=== PATIENT | male | born 1965 | race Asian ===

== ENCOUNTER 2018-07-19 05:21 | Inpatient (IN) | payer OTHER ==
[2018-07-19] MEDS ORDERED: KETAMINE 500 MG/10 ML VIAL IV ONE (05:26)
[2018-07-19] MEDS ORDERED: SUCCINYLCHOLINE CHLORIDE 200 MG/10 ML SYR IVP ONE (05:26)
[2018-07-19] MEDS ORDERED: PROPOFOL/EMULSION 1,000 MG/100 ML BOTTLE IV ONE (05:27)
[2018-07-19 05:35] LABS: PLATELET COUNT 156 10^3/uL (150-400)
[2018-07-19] MEDS ORDERED: POTASSIUM Cl (KCl) 10 MEQ/100 ML BAG IV ONE (05:36)
[2018-07-19] MEDS ORDERED: fentaNYL 100 MCG/2 ML INJ IVP ONE ×2 (05:37→09:00)
--- NOTE | 2018-07-19 05:42 | EDPHY ---
H & P Stated Complaint: ALOC Time Seen by Provider: 07/19/18 05:38 HPI/ROS: HPI The patient presents with ALOC with presumed cardiac arrest. The patient went to bed late last night at about 1:00 a.m. Because he was taking care of his baby. He awoke early this morning and got up and went to another bedroom to sleep. He was found by his short of breath and then lost consciousness. She immediately perform CPR. 911 was called. When fire department arrived they placed pads on the patient and he was in a shockable rhythm so he received 1 shock. When paramedics arrived he was in ventricular tachycardia, he received a 2nd shock and then was in a sinus tachycardia after this. He had return of pulses and a normal blood pressure. He received amiodarone. REVIEW OF SYSTEMS 10 systems were reviewed and negative with the exception of the elements mentioned in the history of present illness. PMHx: Healthy, does not take any medications Soc Hx: Lives with his and baby, occasional alcohol, no drugs PHYSICAL General Appearance: Obtunded, does not respond to sternal rub Eyes: Pupils equal and round no pallor or injection ENT, Mouth: Mucous membranes moist Respiratory: He is taking occasional breaths on his own Cardiovascular: Regular rate and rhythm Gastrointestinal: Abdomen is soft and non-tender, no masses, bowel sounds normal Neurological: Unresponsive to painful stimuli, does move extremities Skin: Warm and dry, no rashes Musculoskeletal: Neck is supple non tender Extremities: symmetrical, full range of motion Source: Family, EMS Exam Limitations: Clinical condition Constitutional: Initial Vital Signs Temperature (C) 35.5 C L 07/19/18 05:30 Heart Rate 107 H 07/19/18 05:30 Respiratory Rate 16 07/19/18 05:30 Blood Pressure 160/116 H 07/19/18 05:30 O2 Sat (%) 94 07/19/18 05:30 O2 Delivery Mode Ventilator Allergies/Adverse Reactions: No Known Allergies Allergy (Unverified 07/19/18 05:34) Home Medications: Medication Instructions Recorded NK [No Known Home Meds] 07/19/18 Medical Decision Making - Diagnostics EKG Interpretation: EKG: Complete interpretation has been separately recorded in the [facility] [employer] archive. Summary impression: QRS is wide with right bundle branch block, no ST segment elevation Imaging Results: CT head without contrast is unremarkable. CT chest with contrast demonstrates no pulmonary embolism, bilateral dependent infiltrates, ET tube is at the marylin, discussed with Dr. Cavanaugh of Radiology. Chest x-ray single view demonstrates bilateral pulmonary infiltrates. Imaging: Discussed imaging studies w/ call center recruiter Radiologist, I viewed and interpreted images myself Procedures: INTUBATION Procedure: Rapid sequence intubation. Indication for the procedure was airway protection. The patient was preoxygenated with 100% oxygen by face mask and nasal cannula. The patient was given the following IV medications: Ketamine and succinylcholine, . The patient was orally endotracheally intubated using glide scope with a 8.0 ETT. In line stabilization was performed during the procedure. Tracheal intubation was confirmed with misting on the tube; breath sounds were auscultated equally bilaterally; appropriate color change with [place] CO2 detector. Chest X-ray shows ETT in good position. The procedure was performed by myself. Differential Diagnosis: This is a 53-year-old man who is previously healthy who presents with an episode of shortness of breath and then ALOC with cardiac arrest, initiating CPR immediately. Initially found in a shockable rhythm by fire department and 1 shock delivered. Paramedics found him in ventricular tachycardia and delivered 2nd shock with return of spontaneous circulation. On arrival here, the patient is minimally responsive, does have blood pressure and strong pulses. He is breathing on his own though with decreased respiratory rate. Plan for intubation, IV fluids, EKG. EKG demonstrates no obvious STEMI that he was likely a VFib or V-tach arrest, I have consulted with Dr. Lees from Cardiology. We plan to take the patient to the catheterization lab for HACA and possible catheterization. Patient was intubated in the emergency department, started on propofol. His CT scan of his chest showed no PE. He was hypokalemic with a potassium of 2. His potassium was repleted. He received a 1 L fluid bolus. Critical Care Time: CRITICAL CARE Critical care time spent by me, Dr. Carrasquillo, exclusively with this patient was 30 minutes, exclusive of PA time and exclusive of procedures. The organ system at risk was cardiac and I gave IV fluids, intubated the patient, consulted with Cardiology, emergently transfer the patient to the catheterization lab to prevent worsening of the patients condition. - Data Points Laboratory Results: Laboratory Results 07/19/18 05:20 07/19/18 05:20 07/19/18 07/19/18 07/19/18 05:32 05:29 05:20 WBC RBC Hgb POC Hgb 16.0 gm/dL gm/dL (13.7-17.5) Hct POC Hct 47 % % (40-51) MCV MCH MCHC RDW Plt Count MPV Neut % (Auto) Lymph % (Auto) [place] % (Auto) Eos % (Auto) Baso % (Auto) Nucleat RBC Rel Count Absolute Neuts (auto) Absolute Lymphs (auto) Absolute Monos (auto) Absolute Eos (auto) Absolute Basos (auto) Absolute Nucleated RBC Immature Gran % Immature Gran # RBC/WBC/PLT Morphology Platelet Estimate PT INR D-Dimer POC Sodium 142 mEq/L mEq/L (135-145) Sodium POC Potassium 2.0 mEq/L L* mEq/L (3.3-5.0) Potassium POC Chloride 106 mEq/L mEq/L (97-110) Chloride Carbon Dioxide Anion Gap POC BUN 19 mg/dL mg/dL (7-23) BUN Creatinine POC Creatinine 1.2 mg/dL mg/dL (0.7-1.3) Estimated GFR Glucose POC Glucose 263 mg/dL H mg/dL (70-100) Calcium Magnesium 2.7 mg/dL H mg/dL (1.6-2.3) POC Troponin I 0.01 ng/mL ng/mL (0.00-0.08) Ethyl Alcohol 07/19/18 07/19/18 07/19/18 05:20 05:20 05:20 WBC 13.37 10^3/uL H 10^3/uL (3.80-9.50) RBC 5.22 10^6/uL 10^6/uL (4.40-6.38) Hgb 15.4 g/dL g/dL (13.7-17.5) POC Hgb Hct 46.5 % % (40.0-51.0) POC Hct MCV 89.1 fL fL (81.5-99.8) MCH 29.5 pg pg (27.9-34.1) MCHC 33.1 g/dL g/dL (32.4-36.7) RDW 12.6 % % (11.5-15.2) Plt Count 156 10^3/uL 10^3/uL (150-400) MPV 10.2 fL fL (8.7-11.7) Neut % (Auto) 27.3 % L % (39.3-74.2) Lymph % (Auto) 68.0 % H % (15.0-45.0) [place] % (Auto) 3.1 % L % (4.5-13.0) Eos % (Auto) 0.5 % L % (0.6-7.6) Baso % (Auto) 0.3 % % (0.3-1.7) Nucleat RBC Rel Count 0.1 % % (0.0-0.2) Absolute Neuts (auto) 3.65 10^3/uL 10^3/uL (1.70-6.50) Absolute Lymphs (auto) 9.09 10^3/uL H 10^3/uL (1.00-3.00) Absolute Monos (auto) 0.41 10^3/uL 10^3/uL (0.30-0.80) Absolute Eos (auto) 0.07 10^3/uL 10^3/uL (0.03-0.40) Absolute Basos (auto) 0.04 10^3/uL 10^3/uL (0.02-0.10) Absolute Nucleated RBC 0.01 10^3/uL 10^3/uL (0-0.01) Immature Gran % 0.8 % % (0.0-1.1) Immature Gran # 0.11 10^3/uL H 10^3/uL (0.00-0.10) RBC/WBC/PLT Morphology TNP Platelet Estimate ADEQUATE (ADEQ) PT 13.7 SEC SEC (12.0-15.0) INR 1.03 (0.83-1.16) D-Dimer 5.17 ug/mLFEU H ug/mLFEU (0.00-0.50) POC Sodium Sodium 141 mEq/L mEq/L (135-145) POC Potassium Potassium 2.3 mEq/L L* mEq/L (3.3-5.0) POC Chloride Chloride 107 mEq/L mEq/L (97-110) Carbon Dioxide 14 mEq/l L mEq/l (22-31) Anion Gap 20 mEq/L H mEq/L (8-16) POC BUN BUN 18 mg/dL mg/dL (7-23) Creatinine 1.2 mg/dL mg/dL (0.7-1.3) POC Creatinine Estimated GFR > 60 Glucose 255 mg/dL H mg/dL (70-100) POC Glucose Calcium 8.4 mg/dL L mg/dL (8.5-10.4) Magnesium POC Troponin I Ethyl Alcohol < 10 mg/dL mg/dL (0-10) Medications Given: Fentanyl/Sodium Chloride (Fentanyl 10 Mcg/Ml (Premix)) 100 mls @ 0 mls/hr IV CONT TARAH; As Directed PRN Reason: Protocol Stop: 07/29/18 05:59 Last Admin: 07/19/18 06:00 Dose: 100 mls Propofol (Diprivan 10 Mg/Ml (Premix)) 100 mls @ 0 mls/hr IV CONT TARAH; Titrate PRN Reason: Protocol Stop: 01/15/19 05:59 Last Admin: 07/19/18 05:35 Dose: 100 mls Discontinued Medications Fentanyl (Sublimaze) 100 mcg IVP EDNOW ONE Stop: 07/19/18 05:38 Last Admin: 07/19/18 06:27 Dose: 100 mcg Potassium Chloride (Potassium Cl 10 Meq (Premix)) 100 mls @ 100 mls/hr IV EDNOW ONE Stop: 07/19/18 06:59 Last Admin: 07/19/18 06:27 Dose: 100 mls Ketamine HCl (Ketamine) 100 mg IV EDNOW ONE Stop: 07/19/18 05:27 Last Admin: 07/19/18 05:30 Dose: 100 mg Succinylcholine Chloride (Quelicin) 100 mg IVP EDNOW ONE Stop: 07/19/18 05:27 Last Admin: 07/19/18 05:30 Dose: 100 mg Point of Care Test Results: Chemistry 07/19/18 07/19/18 05:32 05:29 POC Sodium 142 mEq/L mEq/L (135-145) POC Potassium 2.0 mEq/L L* mEq/L (3.3-5.0) POC Chloride 106 mEq/L mEq/L (97-110) POC BUN 19 mg/dL mg/dL (7-23) POC Creatinine 1.2 mg/dL mg/dL (0.7-1.3) POC Glucose 263 mg/dL H mg/dL (70-100) POC Troponin I 0.01 ng/mL ng/mL (0.00-0.08) ISTAT H&H 07/19/18 05:32 POC Hgb 16.0 gm/dL gm/dL (13.7-17.5) POC Hct 47 % % (40-51) Departure - Departure Disposition: [facility] Inpatient Acute Clinical Impression: Cardiac arrest, Hypokalemia Condition: Critical
[2018-07-19 05:46] LABS: INR 1.03 (0.83-1.16); PROTIME(PATIENT) 13.7 SEC (12.0-15.0)
[2018-07-19] MEDS ORDERED: IOPAMIDOL (ISOVUE 370) 100 ML BTL IV ONE (05:59)
[2018-07-19] MEDS ORDERED: POTASSIUM Cl (KCl) 100 ML IV ONE (06:00)
[2018-07-19] MEDS ORDERED: fentaNYL/NACL 100 ML IV SCH (06:00)
[2018-07-19] MEDS ORDERED: PROPOFOL/EMULSION 100 ML IV SCH ×2 (06:00→06:30)
[2018-07-19] MEDS ORDERED: LIDOCAINE 1% 300 MG/30 ML SDV ONE (06:22)
[2018-07-19] MEDS ORDERED: IOPAMIDOL (ISOVUE-370) 150 ML BTL IV ONE (06:23)
[2018-07-19] MEDS ORDERED: fentaNYL 100 MCG/2 ML INJ ONE (06:23)
[2018-07-19] MEDS ORDERED: MIDAZOLAM 2 MG/2 ML VIAL ONE (06:23)
[2018-07-19] MEDS ORDERED: NITROGLYCERIN 1,500 MCG/15 ML VIAL MISC ONE (06:27)
[2018-07-19] MEDS ORDERED: EPINEPHrine 1 MG/10 ML SYR IVP ONE (06:27)
[2018-07-19] MEDS ORDERED: BIVALIRUDIN 250 MG/5 ML VIAL IV ONE (06:27)
[2018-07-19] MEDS ORDERED: ATROPINE SULFATE 1 MG/10 ML SYR ONE (06:27)
[2018-07-19] MEDS ORDERED: VECURONIUM BROMIDE 10 MG VIAL ONE (06:59)
--- NOTE | 2018-07-19 07:34 | CPEKG ---
Test Reason : OPEN Blood Pressure : / mmHG Vent. Rate : 096 BPM Atrial Rate : 096 BPM P-R Int : 185 ms QRS Dur : 171 ms QT Int : 441 ms P-R-T Axes : 071 074 -03 degrees QTc Int : 558 ms Sinus rhythm Probable left atrial enlargement Right bundle branch block Confirmed by Margaret Carrasquillo ([id number]) on 07/19/2018 7:34:00 AM Referred By: Confirmed By:Margaret Carrasquillo
[2018-07-19] MEDS ORDERED: PROTOCOL MAGNESIUM 1 DOSE IV PRN (07:51)
[2018-07-19] MEDS ORDERED: PROTOCOL POTASSIUM 1 DOSE MISC PRN (07:51)
[2018-07-19] MEDS ORDERED: POTASSIUM Cl (KCl) 20 MEQ/50 ML BAG IV ONE ×2 (08:21→13:00)
[2018-07-19] MEDS ORDERED: KETAMINE 200 MG/20 ML VIAL ONE (08:34)
[2018-07-19] MEDS: NS 1,000 ML IV SCH (08:48)
[2018-07-19] MEDS: POTASSIUM Cl (KCl) 50 ML IV SCH ×6 (08:48→17:39)
[2018-07-19] MEDS ORDERED: MIDAZOLAM 2 MG/2 ML VIAL IVP PRN (09:00)
[2018-07-19] MEDS ORDERED: NOREPINEPHRINE 4MG/NS 500 ML IV PRN (09:00)
[2018-07-19] MEDS ORDERED: niCARdipine/NACL 200 ML IV PRN (09:00)
[2018-07-19] MEDS ORDERED: MIDAZOLAM HCL 50 MG in D5W 50 ML IV PRN (09:00)
[2018-07-19] MEDS ORDERED: NS 1,000 ML IV ONE ×2 (09:00→21:30)
[2018-07-19] MEDS ORDERED: ENOXAPARIN 30 MG/0.3 ML SYR SC SCH (09:00)
[2018-07-19] MEDS ORDERED: VECURONIUM BROMIDE 50 MG in D5W 50 ML IV SCH (09:00)
[2018-07-19] MEDS ORDERED: RN MUST ADD K & MAG PROT TO WORKLIST MISC ONE (09:00)
[2018-07-19] MEDS ORDERED: NS 250 ML IV PRN (09:00)
[2018-07-19] MEDS ORDERED: NS 1,000 ML IV SCH (09:00)
--- NOTE | 2018-07-19 09:03 | PDPROPOC ---
Sedation Plan of Care Sedation Plan of Care: mental status noted, patient can tolerate sedation ASA Classification: ASA 5 Planned drugs: fentanyl, midazolam Mallampati Score: Unable to assesss Mallampati Reference Image: Patient passed 3-3-2 rule?: Yes
--- NOTE | 2018-07-19 09:04 | PDHPUP ---
History & Physical Update H&P update statement: This history and physical update is based on an assessment of the patient which was completed after admission or registration (within 24 hours), but prior to the surgery/procedure. H&P update: H&P reviewed & patient examined, changes noted (pt. with OOH sudden cardiac with shockable rhythm, CT negative for PE)
--- NOTE | 2018-07-19 09:10 | PDDXCAT ---
Diagnostic Cath Note - . Date: 07/19/18 Caustic Mixer: Nabeel Indication: Resuscitated from sudden cardiac - Procedure Access: right groin Procedure: left heart catheterization, coronary angiography, left ventriculogram , other (Placement of Zoll cooling catheter...) - Findings-Left Heart Catheterization LM: A large vessel that bifurcates into an LAD and circumflex system. No evidence of plaque, dissection or thrombus. LAD: LAD arises in its usual location and gives rise to a large and early diagonal vessel. The LAD and diagonal system is free of flow limiting disease, plaque or thrombus. LCX: The circumflex is 3.5 mm in size and gives rise to a normal obtuse marginal system. No plaque, thrombus or dissection. RCA: 3.5 mm in size and a dominant vessel giving rise to a normal PDA. There is no flow limiting disease, dissection or thrombus. EDP: 15mmHg LVEF: 35% Wall motion: globally decreased LV function with global hypokinesis. The ventricle appears to be normal in size. Complications: NONE Estimated blood loss: <50ml Closure method: other (ARTERIAL LINE LEFT IN PLACE TO TRANSDUCE THE PRESSURE) Assessment: Normal left ventricular chamber size with reduced LV systolic function. Most likely secondary to myocardial stunning from cardiac arrest and resuscitation. There is a normal right dominant coronary system, without evidence of coronary artery disease, dissection thrombus or aneurysm. Plan: Initiate therapeutic hypothermia protocol (Formerly HACA) for indication of return of circulation post and continue cooling with targeted temperature management to maintain temperature below 36 degrees Celsius for the next 24 hours. Initiate rewarming in 24 hours with appropriate neurology consultation tomorrow for possible repeat imaging and EEG to help give prognosis as to neurological outcome. Electrolyte protocol to avoid hypokalemia. Echocardiogram to evaluate for valvular heart disease although mitral regurgitation and aortic stenosis have already been ruled out. The patient may benefit from Cardiac MR to evaluate for ARVD if he has a favorable neurological response to targeted temperature management. He will likely require AICD implantation prior to discharge if his neurological outcome is favorable. Patient Problems: Problems Problem Status Onset Cardiac arrest Acute Hypokalemia Acute
[2018-07-19 09:16] LABS: INR 0.94 (0.83-1.16); PROTIME(PATIENT) 12.8 SEC (12.0-15.0)
[2018-07-19 09:55] LABS: CREATINE KINASE 417 IU/L (0-224)
--- NOTE | 2018-07-19 10:35 | GHP ---
DATE OF ADMISSION: 07/19/2018 Angela Donald is a 53-year-old man, without significant past medical history. He presents to the [facility] via EMS after an apparent cardiac arrest, which occurred at home. The arrest itself was unwitnesse d, but may have been caught relatively quickly after his initial arrest event. The history is mainly obtained from his , who was at home with him at the time of his arrest. The patient had a relatively uneventful day yesterday, slept in fairly late for him on Friday. The family and their 3-year-old and 9-month-old children had a fairly uneventful day. The older child connie Miller went to play and swim in the pool. He did not seem to be unwell or have a fever, nausea, vomit ing, or chills, or any other issues. He did not complain of chest pain or shortness of breath yester day. He was up from 1:00 a.m. until about 4, taking care of the 9-month-old child, and around 3:50 i n the morning he brought the infant to his , who then nursed the child. After that was completed she put the baby down, and then heard some abnormal noises from the other bedroom. She went and fou nd her unresponsive in the bed, describes sounds that were most likely agonal respirations. He was unresponsive and ultimately stopped breathing. She pulled him from the bed onto the floor and began immediate CPR, as well as giving him breaths because his lips were blue, and he was unresponsi ve. She aggressively pushed on his chest, and gave him breaths, and then noted that his lips turned back to a blood color. He also had some spontaneous efforts to breathe at that time. EMS arrived an d an AED were applied, which recommended shock. The patient received a shock x1, and continued to br eathe on his own, then had an apparent pulse. When the paramedics arrived the patient was noted to b e in an unstable ventricular tachycardia, for which he received another shock, as well as amiodarone, and subsequently returned to sinus rhythm, with a perfusing rhythm. The patient was taken to the em ergency department urgently, and an EKG was obtained, demonstrating sinus tachycardia with right bund le branch block, a QTc, which was prolonged and measured at 558 milliseconds. QT uncorrected was 441 milliseconds. The patient did have an early R-wave transition and a dominant R prime wave of his QR S, with a fairly deep S-wave in I, aVL, V4, V5 and V6. I was asked to see the patient urgently in co nsultation by the emergency department physician. Because of the lack of ST-segment changes on the EKG, I recommended that the patient have a CT of his pulmonary circulation to rule out pulmonary embolus. His D-dimer had also come back at that point a nd was noted to be elevated at 5.17. This was repeated and found to be 7.3. His point of care tropo nino was 0.01 and negative. REVIEW OF SYSTEMS: A 10-point review of systems was reviewed with the , and was unremarkable. T he patient does have a history of a childhood illness when he was 11, which was associated with diffi culty in moving 1 side of his face, as well as for the fact that he may have lost his ability to spea k for some time. The notes that a couple of times over the past 3 years she has been awakened f rom sleep with her having abnormal breathing and making abnormal noises, very similar to the ones that he made this evening, and he has also been noted to be unresponsive during those episodes, but he has always spontaneously been able to be aroused by shaking him, and usually complains that he was having a bad dream at the time that these events occur. The patient's does not know him to be diabetic or to have hypertension. He does not have dyslipidemia. There is no family history mike t she is aware of presently of sudden cardiac , but that will be checked today when she speaks t o his family in [place]. The 10-point review of systems is negative except as otherwise listed in the H PI. PAST MEDICAL HISTORY: He may have been diagnosed with a fatty liver at some point in the recent past . SOCIAL HISTORY: Pertinent for the fact that he does not smoke. Does not abuse alcohol or illicit dr gilliam. He does have an occasional glass of wine. 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 He is and has 2 young children, ages 3 years, and 9 months, and has been involved in [employer] care of the youngest child with some decrease in his usual sleep pattern. MEDICATIONS: None. ALLERGIES: He is not known to be allergic to medications. PHYSICAL EXAMINATION: GENERAL: At the time my arrival to the hospital, the patient was intubated an d was not overbreathing the ventilator. VITAL SIGNS: The patient's blood pressure was 96/76, with a heart rate of 76, in sinus rhythm on the monitor. Oxygen saturation was 97%, with an FiO2 of 100. The temperature, temperature was 36 Celsius. His pupils were pinpoint and nonreactive. The patient w as unresponsive to sternal rub. Did not have posturing or other evidence of acute neurological rojas es. There were no obvious mild fasciculations or tremor. NECK: Revealed no bruit, and there was no evidence of JVD. HEART: Revealed a normal S1 and S2, without S3, S4. I did not appreciate a murmu r, rub, or gallop sound. LUNGS: Clear to auscultation anteriorly, with decreased breath sounds at th e posterior bases bilaterally. ABDOMEN : Scaphoid, with positive bowel sounds. It is nondistended a nd nontender. There is no apparent hepatosplenomegaly or masses in the abdomen. PULSES: The femora l, dorsalis pedis and posterior tibial pulses were 2+, symmetrical and equal bilaterally. EXTREMITIE S: Cool and dry, without evidence of diaphoresis. LABORATORY STUDIES: Revealed a sodium of 142, potassium of 2.3, which was repeated and found to be 2 .0 point of care chloride was 106. BUN is 19, creatinine 1.2, glucose 263. Ionized calcium was 1.08 , with a magnesium of 2.7. Post intubation blood gas revealed a pH of 7.21, pCO2 of 49, PO2 of 132, CO2 of 20 with a base excess of -9. CBC revealed a white count of 13.37, with a predominance of lymp hocytes at 68.0. There was also an absolute lymphocytosis at 9.09, 10 to 3rd per microliter. The H a nd H were 15.4 and 46.5, with a platelet count of 156. Toxicology screen in the urine was negative, with an ethyl alcohol of less than 10. There was no evidence of drugs of abuse in his system. PT/IN R was initially 13.7 and 1.03, with a D-dimer of 5.17, repeated and found to be 7.3. The EKG again r eveals sinus tachycardia with right bundle branch block and deep S waves in V1, V2 and the lateral pr ecordial leads, with a prominent V2. There is no evidence of pre-excitation on the EKG. The NV inte rval was noted to be 185. There was also no evidence of the Brugada variant. The QT corrected is 55 8. There was also no evidence of an epsilon wave in V1 and V2, so no EKG evidence of after potential s that would be suggestive of arrhythmogenic right ventricular dysplasia. There were no acute EKG ch anges suggestive of myocardial injury or ST-segment elevation. The patient's CT scan of the chest was negative for pulmonary embolus. The CT of the head was also n egative for an acute injury or bleed. There was no midline shift or evidence of a stroke, per the ra diologist's report. I did review the chest CT and head CT images, as well as the chest x-ray. This does reveal some degree of consolidation in the gravity-dependent regions of the right and left lungs , especially in the lower lobes. This may be consistent with post arrest or aspiration. IMPRESSION/PLAN: The patient has experienced sudden cardiac , which was out of the hospital, an d the initial event was not witnessed. The patient did receive immediate bystander CPR from his , with return of circulation and breathing effort prior to the arrival of the paramedics. His condit ion deteriorated again, and he received a countershock for an AED recommended shock. The rhythm was, therefore, most likely ventricular fibrillation or ventricular tachycardia. At the time of the arri sabrina of the paramedics, the patient did have what was described as ventricular tachycardia. I have no t seen those rhythm strips to confirm this, given the fact that the patient has an underlying wide ri ght bundle branch block. This could of course have been a different rhythm. In any case, the patien t responded normally with what appears to be sinus tachycardia and right bundle branch block with the second shock and amiodarone. The patient has remained unresponsive and underwent an intubation unde r the care of for airway protection, and is ruled out for pulmonary embolus, in spite o f an elevated D-dimer level, on the basis of a CT pulmonary angiogram. Our plan is to take the patie nt to the cardiac catheterization laboratory, since he is unconscious, and has had a return of sponta neous circulation post [id number] arrest with documented ventricular tachycardia. He will be ta claire to the [facility] laboratory for placement of Zoll therapeutic temperature management catheter in the venous system, and because his CT is negative for pulmonary embolus, we will perform cardiac catheterization with coronary angiography and left ventriculography to determine the patient's coronary anatomy, and to rule out a threatened myocardial infarction as the cause for the patient's myocardial rhythm dist urbance. The patient is critically ill and his prognosis, in spite of these efforts, is of course guarded. He will be admitted to the ICU for targeted temperature management, to obtain a temperature of between 33 and 36 degrees Celsius for the next 24 hours. We will use appropriate sedation, along with adjun ctive paralytic therapy if necessary, and management of his blood pressure, if that becomes elevated, with Cardene intravenously. The patient will have an echocardiogram later today to rule out valvula r heart disease or other congenital abnormality such as ventricular septal defect. Neurology consult ation will be obtained tomorrow to help ascertain the patient's prognosis once rewarming has begun. Copy requested to: Primary care physician /[id number]/MODL
[2018-07-19] MEDS: PROPOFOL/EMULSION 100 ML IV SCH ×2 (10:40→16:43)
[2018-07-19] MEDS: ERTAPENEM 1 GM in NS 100 ML IV SCH (11:19)
[2018-07-19] MEDS: ALBUTEROL 60 PUFFS/8 GM MDI IH SCH ×3 (11:32→20:23)
--- NOTE | 2018-07-19 12:21 | ECHO ---
[email or web address] [address] [address] Main: [phone] Fax: Transthoracic Echocardiogram Name: LINDA VALADEZ MR#: [id number] Study Date: 07/19/2018 Study Time: 10:58 AM Date of : 1965 Age: 53 year(s) Height: 162.6 cm (64 in.) Weight: 65 kg (143.3 lb.) BSA: 1.7 m2 Gender: Male Examination: Echo Indication: HACA, V-Fib/Tach Image Quality: Contrast: Requested by: José Lees BP: 141 mmHg/83 mmHg Heart Rate: Rhythm: Normal sinus rhythm Indication: HACA, V-Fib/Tach Procedure Staff Principal Architect: Ar Iverson RDCS Reading Physician: Tremayne Lloyd MD Requesting Provider: Conclusions: Normal size left ventricle. No LV hypertrophy. Normal global systolic LV function. EF is 79 %. No regional wall motion abnormality. Normal diastolic LV function. Normal RV function. The left atrium is normal in size. The right atrium is normal in size. The aorta is normal. No pericardial effusion. Measurements: Chambers Valvular Assessment AV/MV Valvular Assessment TV/PV Normal Normal Normal Name Value Range Name Value Range Name Value Range Ao Maria C (MM): 3.2 cm (2.2 cm-3.7 AV Vmax: 1.19 m/s (1 m/s-1.7 PV Vmax: 1.26 m/s (0.6 m/s-0.9 cm) m/s) m/s) IVSd (2D): 0.8 cm (0.6 cm-1.1 AV maxP mmHg ( - ) PV PGmax: 6 mmHg ( - ) cm) LVOT Vmax: 0.87 m/s (0.7 m/s-1.1 LVDd (2D): 4.1 cm (4.2 cm-5.9 m/s) cm) MV E Vmax: 0.68 m/s ( - ) LVDs (2D): 2.2 cm (2.1 cm-4 MV A Vmax: 0.58 m/s ( - ) cm) MV E/A: 1.17 ( - ) LVPWd (2D): 1.0 cm (0.6 cm-1 cm) LVEF (2D): 79 (>=54 %) Continued Measurements: Valvular Assessment AV/MV Patient: LINDA VALADEZ Study Date: 07/19/2018 Page 1 of 2 10:58 AM Name Value MV E' Septal: 0.05 m/s MV E/E' Septal: 12.90 MV E/E' Lateral: 14.80 Findings: Left Ventricle: Normal size left ventricle. No LV hypertrophy. Normal global systolic LV function. EF is 79 %. No regional wall motion abnormality. Normal diastolic LV function. Right Ventricle: Normal size right ventricle. Normal RV function. Left Atrium: The left atrium is normal in size. Normal appearing atrial septum. Right Atrium: The right atrium is normal in size. Mitral Valve: The mitral valve is normal in appearance and function. Aortic Valve: The aortic valve is normal in appearance and function. Tricuspid Valve: The tricuspid valve is normal in appearance and function. Pulmonic Valve: The pulmonic valve is normal in appearance and function. Aorta: The aorta is normal. Pericardium: No pericardial effusion. (No Signature Object) Patient: LINDA VALADEZ Study Date: 07/19/2018 Page 2 of 2 10:58 AM [id number]
[2018-07-19 12:40] LABS: INR 0.94 (0.83-1.16); PROTIME(PATIENT) 12.8 SEC (12.0-15.0)
--- NOTE | 2018-07-19 13:51 | GCON ---
PULMONARY CRITICAL CARE CONSULTATION DATE OF CONSULTATION: 07/19/2018 REASON FOR CONSULTATION: Intensive care unit evaluation and management of out of hospital cardiopulm onary arrest. The patient is on the HACA protocol. HISTORY: The patient is a 53-year-old with no known medical problems. He was at home early this [facility], helping his to take care of their small child. He was tending to the child and sleeping i n a different room. The awaken at approximately 3:30 and heard her abnormally breathing . She went to wake him up, but could not, noted that his lips were somewhat blue. He was breathing, but respiratory efforts were poor. She pulled him from the bed that he was on onto the floor and be filemon CPR. This was both cardiac and respiratory. She noted better color to his lips. She called 911 . The paramedics arrived rapidly. He was found to be in atrial fibrillation by report and was cardi overted. He was shocked again for ventricular tachycardia and was given amiodarone with return of sp ontaneous circulation and a sinus rhythm. He was transported to the emergency department. It is unc lear to me if he was intubated in the field or in the emergency department. In any case, he was take n emergently to the lab tester. Cardiac catheterization was clean. He received a CT angiogram of the chest, which was negative for pulmonary embolic disease. Some areas of bibasilar consolidation were noted. He did apparently vomit and possibly aspirated. CT scan of the head was negative. He was ad mitted to the intensive care unit. The HACA protocol was initiated at approximately 8 a.m. PAST MEDICAL HISTORY: Negative. He has no known medical problems. No history of heart disease or h eart problems. In high school, he had what sounds like a Bain's palsy. This resolved. There is no history of sleep apnea. His describes as occasional snoring without apneas and occasional night roblero. DRUG ALLERGIES: No known drug allergies. SOCIAL HISTORY: The patient is with a 9-month-old and 3-1/2-year-old at home. 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 He was born in [place]. Tobacco and alcohol are negative. FAMILY HISTORY: Negative/unobtainable from the patient. REVIEW OF SYSTEMS: A 10-point review of systems is negative according to the patient's . PHYSICAL EXAMINATION: GENERAL: Reveals a gentleman who is paralyzed and sedated, endotracheal tube and NG tube are in place, along with a Zoll cooling catheter. An arterial line is also in place and a single lumen IJ catheter is present in the left neck and a triple-lumen catheter is present in the right groin. A Thomas catheter is in place. HEENT: Remarkable for the endotracheal tube and NG tube to suction. Pupils appear small, approximately 3 mm and equal. Reactivity was not assessed. CHEST : Clear anteriorly. There are no rhonchi. Breath sounds are diminished at the bases. HEART: Regu lar in rate and rhythm. VITAL SIGNS: Blood pressure is currently 105/62 with a heart rate of approx imately 60, current temperature is 33. He is on 40% FiO2 with saturations of 100. End-tidal CO2 is 28 currently. ABDOMEN: Soft. Tenderness cannot be assessed. Few bowel sounds are present. GENITO URINARY: A Thomas catheter is in place with a relatively large amount of clear urine. EXTREMITIES: Unremarkable for edema or cords. The extremities are warm with good perfusion. NEUROLOGIC: Examina tion cannot be assessed. DATA BASE: Radiologic studies are as outlined above. Current arterial blood gas shows a pH of 7.40, pCO2 of 26, and a PO2 of 79 on 40% FiO2, a rate of 20, and tidal volume of 580. Saturations are 97%. CO2 is 17 with a base excess of -8. Lactic acid is 3.9. White blood cell count is 17,600, hematocrit 47. Platelets are normal. PT and PTT were normal on admission with a D-dimer as high as 7.3. Sodium is 140. Initial potassium was 2.0. This came u p to 4 following initial repletion and is now 2.8. CO2 17, BUN 18 with a creatinine 0.9, glucose is 258. Ionized calcium 1.07. Magnesium and phosphate are normal. Bilirubin is normal, AST 160. LDH 1262. Total CPK 417. CK-MB is negative. Troponin is 0.87. Albumin is 4.5. Tox screen and blood a lcohol on admission were all negative. ASSESSMENT: 1. Out of hospital cardiac arrest. We do not know the etiology of the initial event. Respiratory a rrest leading to cardiac arrest seems somewhat unlikely, but cannot be totally excluded. A primary a rrhythmogenic arrest is certainly possible. He did have shockable rhythm when initially found and wh en subsequently interrogated had ventricular tachycardia, which was then shocked to a normal sinus rh ythm with return of spontaneous circulation. Prognosis would appear possibly to be favorable due to the resuscitative efforts by his and apparent return of good color to his lips at that time prio r to arrival of the first responders and the paramedics. Neurologic status will not be able to be re assessed until approximately 12 hours after rewarming or approximately 8 p.m. tomorrow night. 2. Probable aspiration pneumonia. The patient did vomit and was felt to have aspirated. CT scan of the chest showed some consolidative changes consistent with this. There was no evidence of pulmonar y embolic disease. 3. Global hypokinesis. This was found on catheterization. Please see the catheterization procedure report by Dr. Lees. Decreased left ventricular function was noted globally; however, the ventricl e was normal in size. Ejection fraction was estimated to be 35% at that time. This was felt to be s econdary to myocardial stunning. There was no evidence of coronary artery disease. 4. Hypokalemia. On replacement protocols. 5. Acute respiratory failure. The patient is on the ventilator, sedated and paralyzed per the HACA protocol. The patient was breathing spontaneously and holding his saturations on arrival to the [facility] and was intubated at that time. PLAN AND RECOMMENDATIONS: Patient will be kept on the HACA protocol. This will end at approximately 8 a.m. tomorrow and rewarming will be started at that time. Paralysis and sedation will be maintain ed. Appropriate ventilatory support will be maintained. Blood gases will be followed. Chest x-ray will be followed. CBC, electrolytes, PT and PTT, etc. will all be followed as per the HACA protocol. A sputum culture will be obtained. Ertapenem will be given for probable aspiration pneumonia. Alb uterol will be given per ventilatory protocols. Further plans and recommendations will be made based on his progress over the next 12 to 24 hours. All of the above was discussed with the patient's and a close friend. Care was discussed with R espiratory, Nursing, and the ICU multidisciplinary team. Over 1 hour of critical care time was spent directly with the patient. /[id number]/MODL
[2018-07-19] MEDS ORDERED: D5W 1,000 ML IV SCH (14:22)
[2018-07-19] MEDS ORDERED: INSULIN REGULAR HUMAN 100 UNIT in NS 100 ML IV SCH (14:22)
[2018-07-19] MEDS ORDERED: D50W 25 GM/50 ML SYR IVP PRN (14:22)
--- NOTE | 2018-07-19 14:34 | ASMTCMCOM ---
CM Note CM Note Notes: Pt arrived via EMS to the Emergency Department following apparent cardiac arrest at home. Reviewed chart. Pt does not appear to have any significant history - possible Bain's palsy as a child (resolved) and a possible fatty liver. Pt is currently intubated and under therapeutic hypothermia protocol. He is and has two small children (ages 3 and 9 months). 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 Discharge needs remain unclear; pt's prognosis is guarded at this time. CM will continue to follow. Discharge Plan: To be determined Date Signed: 07/19/2018 02:30 PM Electronically Signed By:Susanne Enriquez RN
[2018-07-19] MEDS: VECURONIUM BROMIDE 50 MG in D5W 50 ML IV SCH (15:33)
--- NOTE | 2018-07-19 16:58 | PDMN ---
Medical Necessity Medical necessity: [facility] resp failure : out of hospital cardiac arrest - pt intubated, hypothermia protocol - placement of Zoll cooling catheter- condition guarded
[2018-07-19] MEDS: fentaNYL/NACL 100 ML IV SCH (18:24)
[2018-07-19] MEDS: FAMOTIDINE 20 MG/NACL 50 ML IV SCH (20:16)
[2018-07-19] MEDS ORDERED: ALBUMIN 5% 500 ML BOTTLE IV ONE (20:59)
[2018-07-19] MEDS ORDERED: ALBUMIN 5% 500 ML IV ONE (21:30)
[2018-07-20] MEDS: ALBUTEROL 60 PUFFS/8 GM MDI IH SCH ×7 (00:36→23:28)
[2018-07-20] MEDS: NS 1,000 ML IV SCH (00:50)
[2018-07-20] MEDS: PROPOFOL/EMULSION 100 ML IV SCH ×3 (00:50→19:52)
[2018-07-20 01:05] LABS: INR 1.06 (0.83-1.16)
[2018-07-20] MEDS: POTASSIUM Cl (KCl) 50 ML IV SCH ×2 (03:16→03:56)
[2018-07-20] MEDS: VECURONIUM BROMIDE 50 MG in D5W 50 ML IV SCH ×2 (05:31→23:36)
[2018-07-20] MEDS: fentaNYL/NACL 100 ML IV SCH ×2 (07:02→21:16)
[2018-07-20] MEDS ORDERED: PROTOCOL CALCIUM 1 DOSE IV PRN (07:58)
--- NOTE | 2018-07-20 08:22 | PDINTPN ---
Broadcast Field Supervisor Progress Note Assessment/Plan: Assessment/plan: * Status post cardiac arrest * HACA protocol-rewarming as started -continue per protocol -assess neurologic status once warm * Acute respiratory failure secondary to above-stable on mechanical ventilation -will hold weaning for now * Sedation-stable on current paralysis * Shock * Hypokalemia * Possible aspiration pneumonia -continue on ertapenem * Cardiomyopathy-improved * VTE prophylaxis * Stress ulcer prophylaxis * Nutrition-on hold Subjective: Sedated on mechanical ventilation Objective: Vital Signs Temp Pulse Resp BP Pulse Ox 33 C L 43 L 16 113/65 100 07/20/18 07:00 07/20/18 07:00 07/20/18 07:00 07/20/18 07:00 07/20/18 07:00 Laboratory Results 07/20/18 00:10 07/20/18 05:40 07/19/18 07/20/18 07/21/18 05:59 05:59 05:59 Intake Total 4506.1 Output Total 5505 Balance -998.9 PT 14.0 SEC (12.0-15.0) 07/20/18 00:10 INR 1.06 (0.83-1.16) 07/20/18 00:10 - Time Spent With Patient Time Spent With Patient: 35 min of critical care time spent with patient. Case discussed with Nursing and Respiratory therapy Physical Exam - Physical Exam General Appearance: other (Sedated), No alert EENT: PERRL/EOMI, ET tube Neck: non-tender Respiratory: rhonchi (Few basilar), No wheezing Cardiac/Chest: normal peripheral pulses, regular rate, rhythm Abdomen: normal bowel sounds, non-tender, soft Male Genitalia: deferred Rectal: deferred Skin: normal color, warm/dry Extremities: non-tender Neuro/Psych: No alert ICD10 Worksheet Patient Problems: Problems Problem Status Onset Cardiac arrest Acute Hypokalemia Acute
[2018-07-20] MEDS: FAMOTIDINE 20 MG/NACL 50 ML IV SCH ×2 (08:27→21:08)
[2018-07-20] MEDS: ERTAPENEM 1 GM in NS 100 ML IV SCH (08:49)
[2018-07-20] MEDS ORDERED: RN MUST REMOVE K+ & MG+ PROTOCOL FRM WORKLIST MISC SCH (09:00)
[2018-07-20] MEDS ORDERED: RN MUST ADD CA+ & PHOS PROTOCOL TO WORKLIST MISC SCH (09:00)
[2018-07-20] MEDS: D5W 1/2 NS 1,000 ML IV SCH ×2 (09:06→16:04)
[2018-07-20] MEDS ORDERED: D50W 25 GM/50 ML SYR IVP ONE (09:15)
[2018-07-20] MEDS ORDERED: PROTOCOL K PHOSPHATE 1 DOSE IV PRN (10:33)
[2018-07-20 12:27] LABS: INR 1.02 (0.83-1.16); PROTIME(PATIENT) 13.6 SEC (12.0-15.0)
--- NOTE | 2018-07-20 15:40 | PDCARPN ---
Cardiology Progress Note Assessment/Plan: Assessment/Plan: 53-year-old male with no known past medical or cardiac history. He is admitted to the ICU status post cardiac arrest at home. I have reviewed his chart in detail and also discussed the case at length with Dr. Lees. Early yesterday morning the patient's heard the patient breathing at again only and went in and found him unresponsive. She performed CPR and color came back to his lips. EMS arrived quickly and he will had 1 shock from the AICD. He was also given amiodarone and did require 2nd shock, presumably for ventricular tachycardia or ventricular fibrillation. He had return of spontaneous respiration. In the ER he had a CT of the chest negative for pulmonary embolism. He was [facility] and had no significant flow-limiting coronary disease. He has been placed on HACA protocol. Echocardiogram shows normalization of ejection fraction and possible RV abnormalities. He was also significantly hypokalemic with his 1st set of labs yesterday morning. 1. Ybq-yp-uwbbetrh cardiac arrest. This is most consistent with a primary cardiac arrhythmia, although respiratory event with aspiration is also possible. His initial EKG showed right bundle branch block. His EKG under the HACA protocol shows narrowing of QRS prolongation of the QT, I do not think we can label him as having long QT in the setting of hypothermia. 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 His apparently has witnessed episode similar to this in past but he has always had return of consciousness. He is rewarming today and will have neurological assessment after that. Would favor cardiac MRI to evaluate further mention and right ventricular dysplasia and then secondary prevention IC D. I have discussed this briefly with Dr. Hansen. 2. Hypokalemia: He is on the replacement protocol. Unclear why he would be hypokalemic as there is no report of diuretic use or vomiting or diarrhea. We need to make sure he has not been taking some sort of supplements that could be acting as diuretic. Will ask [facility] for their opinion about this. Certainly hypokalemia could have triggered cardiac arrhythmia. Greater than 45 min was spent in chart review, data review, discussion with Dr. Lees and Dr. Hansen as well as direct patient care. 07/20/18 15:33 Subjective: Intubated and sedated Reviewed/Discussed With: multidisciplinary team Objective: Vital Signs (8 Hrs) Temp Pulse Resp BP Pulse Ox 07/20/18 15:00 34.4 C L 49 L 16 117/66 100 07/20/18 14:00 34.3 C L 50 L 16 118/66 100 07/20/18 13:00 34 C L 47 L 16 121/65 H 100 07/20/18 12:15 52 L 16 100 07/20/18 12:00 33.8 C L 46 L 16 110/67 100 07/20/18 11:00 33.6 C L 47 L 16 112/67 100 07/20/18 10:00 33.4 C L 45 L 16 111/66 100 07/20/18 09:00 33.3 C L 48 L 16 105/60 100 07/20/18 08:10 44 L 16 100 07/20/18 08:00 33 C L 47 L 16 111/64 100 Intake/Output (24 Hrs) 07/19/18 07/20/18 07/21/18 05:59 05:59 05:59 Intake Total 4506.1 Output Total 5505 465 Balance -998.9 -465 Intake: Oral (ml) 0 IV Intake (ml) 205 IV Infused (ml) 4301.1 Albumin 5% 500 ml @ Wide 500 Open IV BOLUS ONE Rx#: [id number] D5w 1,000 ml @ 25 mls/hr 33.6 IV CONT TARAH Rx#: [id number] Insulin Regular Human 100 2.6 unit In Ns 100 ml @ As Directed IV AD TARAH Rx#: [id number] Ns 1,000 ml @ 50 mls/hr 1105 IV CONT TARAH Rx#: [id number] Ns 1,000 ml @ Wide Open 1000 IV ONCE ONE Rx#: [id number] Propofol/Emulsion 100 ml 354 @ Titrate IV CONT TARAH Rx# :[id number] Vecuronium [place] 50 mg 69.5 In D5w 50 ml @ Per Protocol IV CONT TARAH Rx#: [id number] fentaNYL/NACL 100 ml @ As 177.7 Directed IV CONT TARAH Rx# :[id number] niCARdipine/NACL 200 ml @ 58.7 Per Protocol IV CONT PRN Rx#:[id number] Output: Urine (ml) 4755 465 Catheter 4155 465 OG Tube Output (ml) 750 Large Bore (>12 Hebrew) 750 Non-weighted Oral Stomach Other: Weight 66.9 kg Number of Stools Catheter 0 Intubated and sedated Regular rate and rhythm without murmur above gallop Lungs clear without wheezes rhonchi or rales Abdomen soft No lower extremity edema 2+ dorsalis pedis pulses bilaterally Chest x-ray reviewed: Bilateral alveolar opacities. Result Diagrams: 07/20/18 11:55 07/20/18 11:55 Cardiac Labs: Cardiac Lab Results (72 Hrs) 07/19/18 08:50 CK-MB (CK-2) Fraction 5.15 H Troponin I 0.876 H EKG: Reviewed by me: 1st EKG so sinus rhythm with right bundle branch block. 2nd EKG shows sinus bradycardia, more narrow QRS, mildly prolonged QT interval. No evidence of pre-excitation or Brugada pattern. Telemetry: Sinus rhythm and sinus bradycardia. Intermittent bundle branch block. Echocardiogram: Reviewed by me: Normal LV size and systolic function without regional wall motion abnormality. The RV is borderline dilated with possible apical hypokinesis. No significant valvular disease. Catheterization films reviewed by me: Slightly slow filling in all cardiac vessels without flow-limiting lesion. Ejection fraction on ventriculogram is approximately 35%. ICD10 Worksheet Patient Problems: Problems Problem Status Onset Cardiac arrest Acute Hypokalemia Acute
--- NOTE | 2018-07-20 18:39 | SOAPPROG ---
SOAP Progress Note Assessment/Plan: Assessment: Nephrology consult please see dictation # [id number] I discussed my recs with Dr. Casillas, ICU team, and family pager [phone] 07/20/18 19:32 Objective: Vital Signs Temp Pulse Resp BP Pulse Ox 35.0 C L 52 L 16 111/64 100 07/20/18 18:00 07/20/18 18:00 07/20/18 18:00 07/20/18 18:00 07/20/18 18:00 Microbiology 07/20/18 00:45 - Final Sputum, Induced/Suctioned Laboratory Results 07/20/18 11:55 07/19/18 07/20/18 07/21/18 05:59 05:59 05:59 Intake Total 4506.1 1095.2 Output Total 5505 595 Balance -998.9 500.2 PT 13.6 SEC (12.0-15.0) 07/20/18 11:55 INR 1.02 (0.83-1.16) 07/20/18 11:55 ICD10 Worksheet Patient Problems: Problems Problem Status Onset Cardiac arrest Acute Hypokalemia Acute
--- NOTE | 2018-07-20 20:29 | GCON ---
DATE OF CONSULTATION: 07/20/2018 REFERRING PHYSICIAN: Brenda Casillas MD REASON FOR CONSULTATION: Hypokalemia. HISTORY OF PRESENT ILLNESS: The patient is a 53-year-old man with no significant past medical history, who was brought in by paramedics yesterday after an apparent cardiac arrest at home. The patient is unable to give any history as he is currently intubated and sedated, so most of this is obtained from discussing with his family, reviewing the chart, and discussing with Dr. Casillas. His was present at the time of the arrest. She notes that he had an episode of grunting noises that she heard from the other room when he was putting the baby down to bed. She went in and found him unresponsive, and sounded like he had an agonal breath. At that point, he stopped breathing and she began immediate CPR while awaiting paramedics. When paramedics arrived, a shock was recommended and, therefore, was presumably a ventricular tachycardiac arrhythmia. He at that point received amiodarone, and returned to sinus rhythm. His EKG on arrival to the emergency room demonstrated sinus tachycardia with a right bundle branch block and a prolonged QTc. He had a CT of his chest that was negative for pulmonary embolus. He was also taken to the wheelabrator operator emergently, and did not have any flow-limiting obstructive disease. He has since been put on a hypothermic protocol. His echocardiogram shows a normal EF with possible abnormal right ventricle. Dr. Casillas has asked me to see the patient given his profound hypokalemia on admission. On his labs, initial potassium was 2.3, repeat demonstrated 2.0. He has received several doses of potassium chloride intravenously, and his most recent level is up to 4.3 at 1800 this afternoon. His creatinine on arrival was 1.2 but it has improved to 0.7 by most recent labs. Of note, his blood sugar was 255, and his bicarbonate was 14 on these initial labs. The patient's denies any history of any diabetes. She was able to pull up [facility] records, for which his primary care is Dr. Dorothea Skinner. He had a hemoglobin A1c in April of this year that was normal at 5.4. Unfortunately, there were no chemistry values in the [facility] that she was able to pull up. As far she is aware, he has never been told he has had a low potassium. His magnesium on these initial labs was 2.7 and his calcium was 8.4. He is not taking any bake-wxy-dmzeamg medications or prescription medications. He is not taking herbal medications. She notes that his diet has been fairly regular with a variety of solute intake. She notes that he has been trying to lose a little bit of weight recently but has not been overly-restricting his diet. She denies any use of diuretics or laxatives. She denies any recent nausea, vomiting, or diarrhea. 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 He plays basketball and has not had the patient stop doing this as a result of cramping or fatigue. However, his does note that he has had a few episodes over the past 2 years where he makes these abnormal grunting noises, and with patting him on the back he snaps out of it. He has never lost consciousness or had to go to the emergency room as a result. There is no family history if any electrolyte disorders or kidney failure. REVIEW OF SYSTEMS: Obtained from his and reviewing the chart. GENERAL: He has not had any fevers or decreased oral intake. He was generally feeling well up until this event. HEENT: No sore throat. PULMONARY: No shortness of breath. CARDIAC: No chest pain. No lower extremity edema. GI: No nausea, vomiting, or diarrhea. He does have chronic constipation but no worse, and was not using any laxatives. : He has not had any dysuria or hematuria or polyuria. ENDOCRINE: No history of diabetes. He had an A1c of 5.4 in Fifi of this year. No polydipsia. SKIN: No rash. NEUROLOGIC: No recent weakness or loss of consciousness until this episode. MUSCULOSKELETAL: No muscle cramps. PAST MEDICAL HISTORY: No significant past medical history. He did have an A1c of 5.4 in Fifi of this year but no other labs are available. FAMILY HISTORY: His mother has Parkinson's. There are no kidney disorders or electrolyte abnormalities. SOCIAL HISTORY: He is . He drinks occasional alcohol. Exercises by playing basketball. He has 2 small children. 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 OUTPATIENT MEDICATIONS: No prescription or ivyp-nrk-onguwsm medications. PHYSICAL EXAM: VITAL SIGNS: Temperature is 35.2, on a cooling protocol. Blood pressure 132/75, pulse 58, satting 100% on 40% FiO2. GENERAL: Intubated and sedated on cooling-blanket protocol. HEENT: Pupils are reactive. Mucous membranes are moist. NECK: Supple. CARDIAC: Regular rate and rhythm. Bradycardic. No murmurs or rubs. LUNGS: Clear to auscultation bilaterally. ABDOMEN: Soft. Normal bowel sounds. : Thomas is in place, with yellow urine. EXTREMITIES: Cool to touch. No edema. Good muscle tone. NEUROLOGIC: Sedated and on paralytics. INITIAL LABS: On presentation showed a sodium 141, potassium 2.3, chloride 107 , bicarbonate 14, BUN 18, creatinine 1.2, glucose 255, calcium 8.4, magnesium 2.7, troponin 0.01. His most recent labs show a sodium 142, potassium 4.3, chloride 113, bicarbonate 23, BUN 13, creatinine 0.6, glucose 95, calcium 8.2, phosphorus 3.5, magnesium 2.1. His LDH initially was 1262. His AST was 160. Total bilirubin 0.7, albumin 4.5, phosphorus 3.5. His initial blood gas at 12 o 'clock yesterday was pH 7.4, pCO2 of 26, PO2 of 79, bicarbonate 16. White blood cell count most recently was 8.2, hemoglobin 14.0, hematocrit 40.5, platelets 103. Urine toxicology screen was negative. Alcohol level was negative. IMAGING: His CTA of the chest was negative for pulmonary embolus. He did have lower lung consolidation bilaterally, worse on the right side. Head CT was negative. DISCUSSION AND DECISION-MAKING: The patient is a 53-year-old man with no significant past medical history, who now presents with an outside cardiac arrest, with severe hypokalemia on presentation. 1. Hypokalemia. His potassium was quite low on presentation. Given the negative workup so far for the etiology of his cardiac arrest, including the negative cardiac cath and CT angiogram of his chest, I agree that this could possibly be the explanation. Discussing with his , there is no history of any recent diuretic or laxative use. He is not on any medications, both over- the-counter or prescription. Presumably, if this is renal wasting of potassium , I would have expected this to be noted sooner than at age 53. However, reviewing his [place] records, there are no chemistries that have been checked at least in several years.. His glucose was elevated on presentation and his bicarb was low, suggesting the possibility of a diabetic ketoacidosis. Unfortunately, no ketones or urinalysis was checked. I will check a hemoglobin A1c. This also raises the possibility of a renal tubular acidosis, and we will send urine electrolytes to better evaluate. What would be most helpful would be to do a 24-hour urine potassium collection to determine if he has had any renal wasting. However, this study is difficult to interpret in the setting of severe hypokalemia given the need to replace potassium urgently. A random urine potassium will be helpful. If it does show significant abnormal values, then I think it is worthwhile starting the 24 hour collection. We will also check the rest of the electrolytes. His magnesium was normal on presentation. I agree with continued close monitoring of his potassium as you are- we will have to observe his potassium for a few days to see if it begins to drop again to help determine if he truly was this hypokalemic on presentation or if this was medication effect. He is having this checked every few hours, especially while he is on the hypothermic protocol. Once we have the results of these tests, we will be better able to understand the cause and make further recommendations. I have discussed this with both his family and Cardiology in detail. 2. Cardiac arrest. Again, this may be potassium related. He had a normal cardiac cath, as well as a CT angiogram; no family history. Dr. Casillas does mention that his right ventricle does appear abnormal, and there is a potential chance for an arrhythmia focus. Obviously, we need to exclude potassium as the cause given the severity. Thank you very much for the consultation. We will continue to follow closely with you. Please do not hesitate to call with any questions. /[id number]/MODL MTDD
[2018-07-21] MEDS: PROPOFOL/EMULSION 100 ML IV SCH ×2 (00:41→07:31)
[2018-07-21 01:10] LABS: INR 1.03 (0.83-1.16); PROTIME(PATIENT) 13.7 SEC (12.0-15.0)
[2018-07-21] MEDS ORDERED: POTASSIUM Cl (KCl) 50 ML IV ONE (01:28)
[2018-07-21] MEDS: ALBUTEROL 60 PUFFS/8 GM MDI IH SCH ×3 (03:17→10:55)
[2018-07-21] MEDS ORDERED: MAGNESIUM SULF 1 GM/DEXTROSE 100 ML IV ONE (04:59)
[2018-07-21] MEDS: AMPICILLIN/SULBACTAM 3 GM in NS 100 ML IV SCH ×4 (05:01→23:39)
[2018-07-21] MEDS: D5W 1/2 NS 1,000 ML IV SCH (05:28)
[2018-07-21] MEDS: fentaNYL/NACL 100 ML IV SCH (07:31)
--- NOTE | 2018-07-21 08:31 | PDINTPN ---
Sport Psychologist Progress Note Assessment/Plan: Assessment/plan: * Status post cardiac arrest * HACA protocol-now warm * Mental status-awake and alert and following commands * Acute respiratory failure secondary to above-stable on mechanical ventilation -will assess for extubation including CPAP trial and weaning parameters * Probable severe obstructive sleep apnea -will arrange for an outpatient sleep study soon as possible * Sedation-off * Shock-resolved * Hypokalemia * Possible aspiration pneumonia -continue on Unasyn * Cardiomyopathy-improved * VTE prophylaxis * Stress ulcer prophylaxis * Nutrition-on hold Overall markedly improved Subjective: Awake and alert on mechanical ventilation. Following simple commands. Objective: Vital Signs Temp Pulse Resp BP Pulse Ox 36.8 C 108 H 14 135/77 H 100 07/21/18 08:00 07/21/18 08:00 07/21/18 08:00 07/21/18 08:00 07/21/18 08:00 Microbiology 07/20/18 00:45 - Final Sputum, Induced/Suctioned Laboratory Results 07/21/18 00:10 07/21/18 04:25 07/20/18 07/21/18 07/22/18 05:59 05:59 05:59 Intake Total 4506.1 2243.7 Output Total 5505 1320 Balance -998.9 923.7 PT 13.7 SEC (12.0-15.0) 07/21/18 00:10 INR 1.03 (0.83-1.16) 07/21/18 00:10 Laboratory Results 07/21/18 00:10 07/21/18 04:25 07/21/18 07/21/18 04:25 04:25 Patient Temperature 36.6 DEGREES DEGREES pCO2 45 mmHg H mmHg (34 - 38) pO2 92 mmHg H mmHg (65 - 75) Total CO2 24 mEq/L mEq/L (23 - 27) ABG pH 7.32 L (7.35 - 7.45) ABG PO2/FiO2 Ratio 230 RATIO RATIO ABG HCO3 23 mEq/L mEq/L (22 - 26) ABG O2 Saturation 97 % H % (92 - 95) ABG Base Excess -3.2 mEq/L L mEq/L (-2.5 - 2.5) ABG Lactic Acid 1.3 mmol/L mmol/L (0.5 - 1.6) O2 Concentration % 40 % % Actual Respiration Rate 20 Set Respiration Rate 18 SIMV YES Tidal Volume 500 PEEP 5 Pressure Support 7 Calcium 8.2 mg/dL L mg/dL (8.5 - 10.4) Ionized Calcium 1.22 MMOL/L MMOL/L (1.12 - 1.30) Phosphorus 3.4 mg/dL mg/dL (2.5 - 4.5) Magnesium 1.8 mg/dL mg/dL (1.6 - 2.3) - Time Spent With Patient Time Spent With Patient: 35 min of critical care time spent with patient, Case discussed with Respiratory therapy Nursing and neurology Physical Exam - Physical Exam General Appearance: alert EENT: PERRL/EOMI, ET tube Neck: non-tender Respiratory: crackles (Few basilar), No respiratory distress, No wheezing Cardiac/Chest: normal peripheral pulses, regular rate, rhythm Peripheral Pulses: 2+: carotid (R), carotid (L), femoral (R), femoral (L), dorsalis-pedis (R), dorsalis-pedis (L) Abdomen: normal bowel sounds, non-tender, soft Male Genitalia: deferred Rectal: deferred Skin: normal color, warm/dry Extremities: normal range of motion, non-tender, normal inspection, normal capillary refill Neuro/Psych: alert ICD10 Worksheet Patient Problems: Problems Problem Status Onset Cardiac arrest Acute Hypokalemia Acute
[2018-07-21] MEDS ORDERED: ENOXAPARIN 60 MG/0.6 ML SYR SC SCH (09:00)
--- NOTE | 2018-07-21 09:16 | GCON ---
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 However, he had an episode 2 nights ago in wh ich she heard him making a sound that she has always heard before and typically he simply responds wh en she shakes him, and wakes up. In this case, he did not respond and she said that he had his eyes partially open, and she thought his teeth were somewhat clenched. She says he was blue in his lips, and she pulled into the floor and initiated CPR. Rescue squad came and assessed him, and he received a shock for ventricular tachycardia. He got amiodarone and went to sinus rhythm. He went through a cute workup in the emergency department and had some EKG changes but good EF documented on his echoca rdiogram. He had a head CT that was unremarkable, and CT angiogram of the chest was negative for pul monary embolus. PAST MEDICAL HISTORY: Generally unremarkable except for that noted above. The patient had the HACA protocol initiated. He has been rewarmed and reached normothermia at around 0100, 7 hours ago. The nurse says he has been following commands and seems to be understanding instructions and commands thr ough his , but the patient understands Polish. No alcohol or smoking. He has never had any epi sodes of problems with breathing or nightmares any other times except during the evenings, that his w brianda has witnessed. No known history of seizure or chest pain or palpitations, and no history of sync ope. He is normally very physically active. No episodes of partial paralysis or severe muscle cramp s. FAMILY HISTORY: Noncontributory, as far as we know, but cannot get direct information from patient y et. No drug allergy. REVIEW OF SYSTEMS: Unobtainable currently. MEDICATIONS: At home, he was not on any regular prescription drugs. Here, he has received protocol with sedation and paralytics for the HACA protocol and other supportive medications but that have all been discontinued in terms of the paralytics and only p.r.n. sedative. PHYSICAL EXAMINATION: VITAL SIGNS: The blood pressure is 135/77, pulse 108, respiration 14 on the v entilator. He is having some spontaneous respiration now and being put on CPAP. Temperature 36.8. GENERAL: He is well developed, in no acute distress. NECK: Supple, with no bruits or masses. CARD IAC: Regular rate and rhythm. No murmur. NEUROLOGIC: He is lethargic, but arouses, and opens his eyes to command, and follows commands to close his eyes and squeeze my fingers, and some more specifi c commands he comes close, but does not always get it exactly right in his hands, such as being asked to stick up his thumb. Another time he was able to stick up 2 fingers on command on the right. The facial movements seem to be symmetric. The pupils are 2 mm and reactive. Extraocular movements see m to be intact. The motor exam reveals spontaneous movements in all the extremities in a purposeful fashion, and I do not detect any weakness on manual muscle testing. He seems to recognize sensation in all the extremities, and reflexes are brisk but symmetric. As noted, the head CT did not show any acute abnormalities. Initial catheterization showed a left ve ntricular ejection fraction of 35%, globally decreased LV function with global hypokinesis, but no oc clusions of coronary vessels. IMPRESSION: Total unit time of 70 minutes. The patient is status post HACA from ventricular tachyca rdia and arrest. There is unproven but clinically suspected sleep apnea history, which may have been a precipitating event here. I do not think he has a primary seizure disorder very likely, and it do es not appear that he has primary coronary disease. At this point, his neurologic examination does n ot show any evidence of overt injury, but we can do further assessments once he is extubated and dete rmine if his language and cognitive skills are fully maintained or not. I spoke to his and expl ained the prognosis is very good for neurologic recovery at this stage, and it looks as if he will pr obably be extubated this morning. /[id number]/MODL
--- NOTE | 2018-07-21 09:48 | SOAPPROG ---
SOAP Progress Note Assessment/Plan: Assessment: Pt examined. His MS appears good, and he is being extubated!! 1. Hypokalemia K now normal, renal function normal, and other electrolytes look ok. At present, I query whether his initial hypokalemia was primarily a result of intracellular shift during resuscitation. It has now normalized, which is likely due to shifting or reshifting (rewarming). In the absence of other systemic findings, isolated hypokalemia seems unlikely. I will check a TSH (thyrotoxic hypokalemic periodic paralysis). At this point, will monitor in a serial fashion, and evaluate further pending future K levels. 2. Sleep apnea Pt's family give a clinical picture severe sleep apnea. This could be primary cause of arrest, if due to reasons other than hypokalemia. 07/21/18 09:49 Subjective: Just extubated Objective: Vital Signs Temp Pulse Resp BP Pulse Ox 36.8 C 108 H 14 135/77 H 100 07/21/18 08:00 07/21/18 08:00 07/21/18 08:00 07/21/18 08:00 07/21/18 08:00 Microbiology 07/20/18 00:45 - Final Sputum, Induced/Suctioned Laboratory Results 07/21/18 00:10 07/21/18 04:25 07/20/18 07/21/18 07/22/18 05:59 05:59 05:59 Intake Total 4506.1 2243.7 Output Total 5505 1320 Balance -998.9 923.7 PT 13.7 SEC (12.0-15.0) 07/21/18 00:10 INR 1.03 (0.83-1.16) 07/21/18 00:10 Physical Exam - Physical Exam General Appearance: mild distress Respiratory: lungs clear Cardiac/Chest: regular rate, rhythm Abdomen: soft Male Genitalia: other (aguilar) Extremities: normal inspection ICD10 Worksheet Patient Problems: Problems Problem Status Onset Cardiac arrest Acute Hypokalemia Acute
[2018-07-21] MEDS: FAMOTIDINE 20 MG/NACL 50 ML IV SCH ×2 (09:54→21:16)
--- NOTE | 2018-07-21 09:57 | PDCARPN ---
Cardiology Progress Note Assessment/Plan: Assessment/Plan: 53-year-old male with no known past medical or cardiac history. He is admitted to the ICU on 07/19 status post cardiac arrest at home. The patient's heard agonal breathing type noises and started CPR. EMS arrived quickly and he had 1 shock from the AED. He was also given amiodarone and did require 2nd shock, presumably for ventricular tachycardia or ventricular fibrillation. He had return of spontaneous respiration. In the ER he had a CT of the chest negative for pulmonary embolism. He was then taken to the label tacker and had no significant flow-limiting coronary disease. He has completed the HACA protocol and is now rewarmed. Echocardiogram shows normalization of ejection fraction and possible RV abnormalities. He was also significantly hypokalemic with his 1st set of labs. 1. Pln-ar-eukcyruu cardiac arrest. This is most consistent with a primary cardiac arrhythmia, although respiratory event with aspiration is also possible. SHEBA leading to VT/VF is possible. I am concerned primary hypokalemia played a role. His initial EKG showed right bundle branch block. His EKG under the HACA protocol shows narrowing of QRS prolongation of the QT, I do not think we can label him as having long QT in the setting of hypothermia. 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 His apparently has witnessed episode similar to this in past but he has always had return of consciousness. At this point, neurological prognosis is favorable, but will await extubation, planned for this morning. Would favor cardiac MRI to evaluate for right ventricular dysplasia and then secondary prevention ICD. 2. Hypokalemia: He is on the replacement protocol. Unclear why he would be hypokalemic as there is no report of diuretic use or vomiting or diarrhea. Appreciate renal consult. Ongoing lab evaluation (SPEP, will need more urine electrolytes) 3. Neuro status: await extubation. He is following commands. Appreciate Dr. Good' consult 07/21/18 09:51 Subjective: Intubated but nods in response to questions Reviewed/Discussed With: other Objective: Vital Signs (8 Hrs) Temp Pulse Resp BP Pulse Ox 07/21/18 08:00 36.8 C 108 H 14 135/77 H 100 07/21/18 07:00 36.8 C 107 H 17 129/74 H 98 07/21/18 06:00 36.8 C 90 19 131/70 H 98 07/21/18 05:00 36.6 C 90 19 128/70 H 99 07/21/18 04:00 36.6 C 84 18 110/60 100 07/21/18 03:15 55 L 18 100 07/21/18 03:00 36.7 C 84 18 136/74 H 100 07/21/18 02:31 36.6 C 77 19 142/75 H 100 07/21/18 02:00 36.5 C 68 18 137/76 H 100 Intake/Output (24 Hrs) 07/20/18 07/21/18 07/22/18 05:59 05:59 05:59 Intake Total 4506.1 2243.7 Output Total 5505 1320 Balance -998.9 923.7 Intake: Oral (ml) 0 IV Intake (ml) 205 208 IV Infused (ml) 4301.1 2035.7 Albumin 5% 500 ml @ Wide 500 Open IV BOLUS ONE Rx#: [id number] D5w 1,000 ml @ 25 mls/hr 33.6 IV CONT TARAH Rx#: [id number] D5w 1/2 Ns 1,000 ml @ 75 905 mls/hr IV CONT TARAH Rx#: [id number] Insulin Regular Human 100 2.6 0 unit In Ns 100 ml @ As Directed IV AD TARAH Rx#: [id number] Ns 1,000 ml @ 50 mls/hr 1105 513 IV CONT TARAH Rx#: [id number] Ns 1,000 ml @ Wide Open 1000 IV ONCE ONE Rx#: [id number] Propofol/Emulsion 100 ml 361 @ Per Protocol IV CONT TARAH Rx#:[id number] Propofol/Emulsion 100 ml 354 @ Titrate IV CONT TARAH Rx# :[id number] Vecuronium Dalton 50 mg 69.5 61.7 In D5w 50 ml @ Per Protocol IV CONT TARAH Rx#: [id number] fentaNYL/NACL 100 ml @ As 177.7 Directed IV CONT TARAH Rx# :[id number] fentaNYL/NACL 100 ml @ 195 Per Protocol IV CONT TARAH Rx#:[id number] niCARdipine/NACL 200 ml @ 58.7 Per Protocol IV CONT PRN Rx#:[id number] Output: Urine (ml) 4755 1320 Catheter 4155 1320 OG Tube Output (ml) 750 0 Large Bore (>12 [place]) 750 0 Non-weighted Oral Stomach Other: Weight 66.9 kg Output Comment Catheter 2 hours Number of Stools Catheter 0 Intubated but following commands Regular rate and rhythm without murmur or gallop Lungs occasional rhonchi anterior and laterally No lower extremity edema Result Diagrams: 07/21/18 00:10 07/21/18 04:25 Cardiac Labs: Cardiac Lab Results (72 Hrs) 07/19/18 08:50 CK-MB (CK-2) Fraction 5.15 H Troponin I 0.876 H Telemetry: Sinus rhythm and sinus tachycardia ICD10 Worksheet Patient Problems: Problems Problem Status Onset Cardiac arrest Acute Hypokalemia Acute
[2018-07-21] MEDS ORDERED: D5W 1/2 NS 1,000 ML IV SCH (10:00)
[2018-07-21] MEDS ORDERED: ONDANSETRON 4 MG/2 ML VIAL ONE (15:16)
[2018-07-21] MEDS: ONDANSETRON 4 MG/2 ML VIAL IVP PRN (15:48)
[2018-07-21] MEDS: ACETAMINOPHEN 325 MG TAB PO PRN ×2 (16:31→21:16)
--- NOTE | 2018-07-21 17:14 | CPEKG ---
Test Reason : OPEN Blood Pressure : / mmHG Vent. Rate : 045 BPM Atrial Rate : 045 BPM P-R Int : 214 ms QRS Dur : 149 ms QT Int : 637 ms P-R-T Axes : 052 063 044 degrees QTc Int : 552 ms Sinus bradycardia Borderline prolonged NH interval Right bundle branch block Prolonged QT Confirmed by Bola Hansen ([id number]) on 07/21/2018 5:13:36 PM Referred By: Confirmed By:Bola Hansen
[2018-07-22] MEDS: AMPICILLIN/SULBACTAM 3 GM in NS 100 ML IV SCH ×3 (06:51→20:27)
[2018-07-22 08:21] LABS: PLATELET COUNT 100 10^3/uL (150-400)
--- NOTE | 2018-07-22 08:33 | SOAPPROG ---
SOAP Progress Note Assessment/Plan: Assessment: hypokalemia, resolved cardiac arrest, witnessed, immediate CPR, survived ALFRED resolved Plan: continue therapies and further cardiac evaluation renal issues seem to have resolved. Renal signing off, available if needed 07/22/18 08:29 Objective: Vital Signs Temp Pulse Resp BP Pulse Ox 37.6 C 83 20 110/81 H 95 07/22/18 07:42 07/22/18 07:42 07/22/18 07:42 07/22/18 07:42 07/22/18 07:42 Microbiology 07/20/18 00:45 - Final Sputum, Induced/Suctioned Laboratory Results 07/22/18 07:55 07/22/18 04:30 07/21/18 07/22/18 07/23/18 05:59 05:59 05:59 Intake Total 2243.7 2328 Output Total 1320 2155 Balance 923.7 173 PT 13.7 SEC (12.0-15.0) 07/21/18 00:10 INR 1.03 (0.83-1.16) 07/21/18 00:10 ICD10 Worksheet Patient Problems: Problems Problem Status Onset Cardiac arrest Acute Hypokalemia Acute
--- NOTE | 2018-07-22 09:19 | PDINTPN ---
[facility] Progress Note Assessment/Plan: Assessment/plan: * Status post cardiac arrest * HACA protocol-resolved * Mental status-awake and alert and following commands * Acute respiratory failure secondary to above-stable off mechanical ventilation * Probable severe obstructive sleep apnea -did well on CPAP last night * Shock-resolved * Hypokalemia-resolved * Possible aspiration pneumonia -continue on Unasyn * Cardiomyopathy-improved * VTE prophylaxis * Stress ulcer prophylaxis * Nutrition-on hold * Disposition-may be stable for transfer to [place]. Will discuss with Cardiology Overall markedly improved Subjective: Resting comfortably in bed. No current complaints. Objective: Vital Signs Temp Pulse Resp BP Pulse Ox 37.5 C 91 20 133/87 H 96 07/22/18 09:00 07/22/18 09:00 07/22/18 09:00 07/22/18 09:00 07/22/18 09:00 Microbiology 07/20/18 00:45 - Final Sputum, Induced/Suctioned Laboratory Results 07/22/18 07:55 07/22/18 04:30 07/21/18 07/22/18 07/23/18 05:59 05:59 05:59 Intake Total 2243.7 2328 Output Total 1320 2155 Balance 923.7 173 PT 13.7 SEC (12.0-15.0) 07/21/18 00:10 INR 1.03 (0.83-1.16) 07/21/18 00:10 - Time Spent With Patient Time Spent With Patient: 35 min of time spent with patient, over 1/2 involved with coordination of care or counseling. Case discussed with Neurology, Nephrology, Nursing and Respiratory therapy Physical Exam - Physical Exam General Appearance: WD/WN EENT: PERRL/EOMI, normal ENT inspection, pharynx normal, TMs normal Neck: non-tender, full range of motion, supple, normal inspection Respiratory: chest non-tender, crackles (Few) Cardiac/Chest: normal peripheral pulses, regular rate, rhythm, systolic murmur Peripheral Pulses: 2+: carotid (R), carotid (L), femoral (R), femoral (L), dorsalis-pedis (R), dorsalis-pedis (L) Abdomen: normal bowel sounds, non-tender, soft Male Genitalia: deferred Rectal: deferred Skin: normal color, warm/dry Extremities: normal range of motion, non-tender, normal inspection, normal capillary refill Neuro/Psych: alert, normal mood/affect, oriented x 3 ICD10 Worksheet Patient Problems: Problems Problem Status Onset Cardiac arrest Acute Hypokalemia Acute
[2018-07-22] MEDS: FAMOTIDINE 20 MG/NACL 50 ML IV SCH (09:31)
--- NOTE | 2018-07-22 12:15 | NEUROPROG ---
Assessment: Total unit time of 15 min. The patient has recovered very well thus far from the cardiac arrest after the HACA protocol and rewarming. I do not find evidence of any neurologic deficits for now, but high-level cognitive evaluation and memory issues may take some time to fully return and require more assessment later depending on his clinical course. I will continue to check on him periodically as he becomes more alert. From a neurologic standpoint he could safely be transferred to [place] and will follow-up with them as an outpatient for these neurologic concerns which may or may not fully arise later. Subjective: The patient was evaluated today and is doing really well over the last 24 hr after being extubated. His says that he seems to be at his baseline cognitively other than being fairly tired and a little confused about some of the details of what happened but follows commands and communicates effectively with her and other caregivers involved. He says that he is curious about what caused this but denies focal numbness or pain or headache. Objective: Vital Signs Temp Pulse Resp BP Pulse Ox 37.6 C 79 17 118/85 H 98 07/22/18 10:00 07/22/18 11:00 07/22/18 11:00 07/22/18 11:00 07/22/18 11:00 Microbiology 07/20/18 00:45 - Final Sputum, Induced/Suctioned Laboratory Results 07/22/18 07:55 07/22/18 04:30 07/21/18 07/22/18 07/23/18 05:59 05:59 05:59 Intake Total 2243.7 2328 Output Total 1320 2155 400 Balance 923.7 173 -400 PT 13.7 SEC (12.0-15.0) 07/21/18 00:10 INR 1.03 (0.83-1.16) 07/21/18 00:10 He is lethargic with his eyes closed but awakens to voice and opens his eyes and will communicate with me briefly and appropriately when I ask him to follow instructions or he asked me questions but still mostly needs time to answer questions quickly. He knows he is in the hospital and understands the general situation. He does not have any focal weakness evident. The speech is soft but fluent. Allergies/Adverse Reactions: No Known Allergies Allergy (Unverified 07/19/18 05:34)
--- NOTE | 2018-07-22 12:15 | PDCARPN ---
Cardiology Progress Note Assessment/Plan: Assessment/Plan: 53-year-old male with no known past medical or cardiac history. He is admitted to the ICU on 07/19 status post cardiac arrest at home. The patient's heard agonal breathing type noises and started CPR. EMS arrived quickly and he had 1 shock from the AED. He was also given amiodarone and did require 2nd shock, presumably for ventricular tachycardia or ventricular fibrillation. He had return of spontaneous respiration. In the ER he had a CT of the chest negative for pulmonary embolism. He was then taken to the [facility] and had no significant flow-limiting coronary disease. He has completed the HACA protocol and is now rewarmed and extubated. Echocardiogram shows normalization of ejection fraction and possible RV abnormalities. He was also significantly hypokalemic with his 1st set of labs. 1. Ccz-rf-xldixtno cardiac arrest. This is most consistent with a primary cardiac arrhythmia, although respiratory event with aspiration is also possible. SHEBA causing VT/VF is possible. I am concerned primary hypokalemia played a role; he may have a channelopathy. His initial EKG showed right bundle branch block. His EKG under the HACA protocol shows narrowing of QRS and prolongation of the QT, I do not think we can label him as having long QT in the setting of hypothermia. EKG today is pending. 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 His apparently has witnessed episode similar to this in past but he has always had return of consciousness. Cardiac MRI today evaluate for right ventricular dysplasia and then secondary prevention ICD tomorrow. This will be scheduled with Dr. Lees. He will need outpatient EP follow-up. 2. Hypokalemia: He is on the replacement protocol, and his potassium is normalized. Unclear why he would be hypokalemic as there is no report of diuretic use or vomiting or diarrhea. Appreciate renal consult. Ongoing lab evaluation (SPEP pending). Recommend outpatient renal follow-up. 3. Neuro status: He seems to have made full recovery. Appreciate Dr. Good' consult. 4. Disposition: Continue ICU status until his defibrillator. He is not stable for transfer to [place] given recent cardiac arrest and need for defibrillator. PT/OT today. 07/22/18 12:16 Subjective: He is feeling well. He ate a little bit. His only discomfort is over his left upper abdomen, possibly related to CPR. He does not feel dyspneic. He confirms that he was not taking any diuretics or laxatives. He does take supplemental calcium, a multivitamin, and some sort of supplement for liver health. Reviewed/Discussed With: family, other (Dr. Foreman) Objective: Vital Signs (8 Hrs) Temp Pulse Resp BP Pulse Ox 07/22/18 11:00 79 17 118/85 H 98 07/22/18 10:00 37.6 C 82 17 116/90 H 97 07/22/18 09:00 37.5 C 91 20 133/87 H 96 07/22/18 07:42 37.6 C 83 20 110/81 H 95 07/22/18 07:00 37.6 C 75 17 110/81 H 97 07/22/18 06:00 37.8 C 86 15 108/71 98 07/22/18 05:00 87 17 108/71 97 Intake/Output (24 Hrs) 07/21/18 07/22/18 07/23/18 05:59 05:59 05:59 Intake Total 2243.7 2328 Output Total 1320 2155 400 Balance 923.7 173 -400 Intake: Oral (ml) 740 IV Intake (ml) 208 100 IV Infused (ml) 2035.7 1488 D5w 1/2 Ns 1,000 ml @ 50 1488 mls/hr IV CONT TARAH Rx#: [id number] D5w 1/2 Ns 1,000 ml @ 75 905 mls/hr IV CONT TARAH Rx#: [id number] Insulin Regular Human 100 0 unit In Ns 100 ml @ As Directed IV AD TARAH Rx#: [id number] Ns 1,000 ml @ 50 mls/hr 513 IV CONT TARAH Rx#: [id number] Propofol/Emulsion 100 ml 361 @ Per Protocol IV CONT TARAH Rx#:[id number] Vecuronium [place] 50 mg 61.7 In D5w 50 ml @ Per Protocol IV CONT TARAH Rx#: [id number] fentaNYL/NACL 100 ml @ 195 Per Protocol IV CONT TARAH Rx#:[id number] Output: Urine (ml) 1320 2155 400 Catheter 1320 2155 400 OG Tube Output (ml) 0 0 Large Bore (>12 Sami) 0 0 Non-weighted Oral Stomach Other: Output Comment Catheter 2 hours No acute distress. Awake, alert, oriented x3. No gross focal neurologic deficits. Appropriate mood and affect Regular rate and rhythm without murmur or gallop Lungs clear anterior and laterally Abdomen soft nontender No lower extremity edema Result Diagrams: 07/22/18 07:55 07/22/18 04:30 Telemetry: NSR ICD10 Worksheet Patient Problems: Problems Problem Status Onset Cardiac arrest Acute Hypokalemia Acute
[2018-07-22] MEDS: ONDANSETRON 4 MG/2 ML VIAL IVP PRN (12:26)
--- NOTE | 2018-07-22 14:38 | ASMTCMCOM ---
CM Note CM Note Notes: Dr. Casillas states patient continues to need ICU status until his defibrillator is in. Patient is not stable for transfer to [place] given his recent cardiac arrest and need for defibrillator. Therapies to work with patient today. Dr. Casillas is recommending outpatient renal follow up and outpatient EP follow up. D/C needs still TBD. CM will follow. Date Signed: 07/22/2018 02:37 PM Electronically Signed By:Skylar Scott LCSW
[2018-07-22] MEDS ORDERED: GADOBUTROL 10 ML VIAL IVP ONE (16:15)
[2018-07-22] MEDS: FAMOTIDINE 20 MG TAB PO SCH (20:27)
[2018-07-23] MEDS: AMPICILLIN/SULBACTAM 3 GM in NS 100 ML IV SCH ×2 (00:36→06:17)
[2018-07-23] MEDS: POTASSIUM Cl (KCl) 100 ML IV SCH ×2 (04:16→05:25)
[2018-07-23 05:53] LABS: PLATELET COUNT 114 10^3/uL (150-400)
[2018-07-23] MEDS ORDERED: NS 1,000 ML IV ONE ×2 (06:00→08:33)
[2018-07-23] MEDS ORDERED: BACITRACIN IRRIGATION/NS 50,000 UNITS/1,000 ML BTL IRR ONE ×2 (06:00→08:33)
[2018-07-23 06:03] LABS: INR 0.97 (0.83-1.16); PROTIME(PATIENT) 13.1 SEC (12.0-15.0)
--- NOTE | 2018-07-23 06:13 | CPEKG ---
Test Reason : OPEN Blood Pressure : / mmHG Vent. Rate : 069 BPM Atrial Rate : 069 BPM P-R Int : 183 ms QRS Dur : 145 ms QT Int : 419 ms P-R-T Axes : 054 095 014 degrees QTc Int : 449 ms Sinus rhythm Nonspecific intraventricular conduction delay Confirmed by Bola Hansen ([id number]) on 07/23/2018 6:13:26 AM Referred By: Confirmed By:Bola Hansen
--- NOTE | 2018-07-23 08:32 | PDPROPOC ---
Sedation Plan of Care Sedation Plan of Care: vital signs stable, mental status noted, patient educated of risks, benefits, alternatives, patient can tolerate sedation ASA Classification: ASA 4 Planned drugs: fentanyl, midazolam Mallampati Score: Class 2 Mallampati Reference Image: Patient passed 3-3-2 rule?: Yes
[2018-07-23] MEDS ORDERED: ceFAZolin 2 GM/DEXTROSE 100 ML IV ONE (08:33)
--- NOTE | 2018-07-23 08:33 | PDHPUP ---
History & Physical Update H&P update statement: This history and physical update is based on an assessment of the patient which was completed after admission or registration (within 24 hours), but prior to the surgery/procedure. H&P update: H&P reviewed & patient examined, changes noted (patient had favorable neurological recovery...)
[2018-07-23] MEDS ORDERED: fentaNYL 100 MCG/2 ML INJ ONE (08:44)
[2018-07-23] MEDS ORDERED: LIDOCAINE 1% 300 MG/30 ML SDV ONE (08:44)
[2018-07-23] MEDS ORDERED: IOPAMIDOL (ISOVUE-300) 50 ML VIAL ONE (08:44)
[2018-07-23] MEDS ORDERED: BUPIVACAINE 0.5% 30 ML SDV ONE (08:45)
[2018-07-23] MEDS ORDERED: LIDO/EPI 1% **for epidural** 30 ML SDV ONE ×2 (08:45→10:22)
[2018-07-23] MEDS ORDERED: MIDAZOLAM 2 MG/2 ML VIAL ONE (08:45)
--- NOTE | 2018-07-23 09:05 | PDINTPN ---
[place] Progress Note Assessment/Plan: Assessment/plan: * Status post cardiac arrest -AICD today * HACA protocol-resolved * Mental status-awake and alert and following commands * Acute respiratory failure secondary to above-stable off mechanical ventilation * Probable severe obstructive sleep apnea -continues to do well on CPAP * Shock-resolved * Hypokalemia-resolved * Possible aspiration pneumonia -continue on Unasyn * Cardiomyopathy-improved * VTE prophylaxis * Stress ulcer prophylaxis * Nutrition-on hold * Disposition-may be stable for transfer to [place] tomorrow Overall markedly improved Subjective: Awake alert and comfortable. Did well on CPAP last night. Objective: Vital Signs Temp Pulse Resp BP Pulse Ox 37 C 87 23 H 138/89 H 94 07/22/18 20:00 07/23/18 07:00 07/23/18 07:00 07/23/18 07:00 07/23/18 07:00 Microbiology 07/20/18 00:45 - Final Sputum, Induced/Suctioned Laboratory Results 07/23/18 05:30 07/23/18 05:30 07/22/18 07/23/18 07/24/18 05:59 05:59 05:59 Intake Total 2328 1513 Output Total 2155 1999 Balance 173 -487 PT 13.1 SEC (12.0-15.0) 07/23/18 05:30 INR 0.97 (0.83-1.16) 07/23/18 05:30 - Time Spent With Patient Time Spent With Patient: 35 min of time spent with patient, over 1/2 involved with coordination of care or counseling. Case discussed with Nursing and Cardiology Physical Exam - Physical Exam General Appearance: WD/WN, alert, no apparent distress EENT: PERRL/EOMI, normal ENT inspection, pharynx normal, TMs normal Neck: non-tender, full range of motion, supple, normal inspection Respiratory: crackles (Few crackles) Cardiac/Chest: normal peripheral pulses, regular rate, rhythm Abdomen: normal bowel sounds, non-tender, soft Male Genitalia: deferred Rectal: deferred Skin: normal color, warm/dry Extremities: normal range of motion, non-tender, normal inspection, normal capillary refill Neuro/Psych: no motor/sensory deficits, alert, normal mood/affect, oriented x 3 ICD10 Worksheet Patient Problems: Problems Problem Status Onset Cardiac arrest Acute Hypokalemia Acute
[2018-07-23] MEDS ORDERED: ETOMIDATE 40 MG/20 ML INJ ONE (10:15)
[2018-07-23] MEDS ORDERED: ONDANSETRON DISINTEGRATING 4 MG TAB PO PRN (15:20)
[2018-07-23] MEDS: FAMOTIDINE 20 MG TAB PO SCH ×2 (15:22→19:48)
[2018-07-23] MEDS: METOPROLOL SUCCINATE XR 25 MG TAB PO SCH (15:22)
[2018-07-23] MEDS ORDERED: PROTOCOL POTASSIUM 1 DOSE MISC PRN (15:33)
--- NOTE | 2018-07-23 15:43 | CPEKG ---
Test Reason : OPEN Blood Pressure : / mmHG Vent. Rate : 088 BPM Atrial Rate : 087 BPM P-R Int : 187 ms QRS Dur : 152 ms QT Int : 394 ms P-R-T Axes : 055 027 000 degrees QTc Int : 477 ms Sinus rhythm Right bundle branch block Confirmed by Bola Hansen ([id number]) on 07/23/2018 3:42:52 PM Referred By: Confirmed By:Bola Hansen
[2018-07-23] MEDS: ACETAMINOPHEN 325 MG TAB PO PRN (19:48)
[2018-07-23] MEDS: AMOXICILLIN/CLAVULANATE POT 875/125 MG TAB PO SCH (19:48)
[2018-07-23] MEDS ORDERED: POTASSIUM CL 10 MEQ TAB PO ONE (21:13)
--- NOTE | 2018-07-23 21:45 | CPIP ---
DATE OF PROCEDURE: 07/23/2018 PROCEDURE: This is a single-chamber AICD implant with atrial discrimination lead. The device is a B iotronik Intica 7 MRI conditional VR-T/DX DF-1 PM, serial #[id number]. The lead is a Biotronik Plexa P roMRI DF-1 S, serial #[id number]. INDICATION/APPROPRIATE USE CRITERIA: The patient presented with a ventricular fibrillation arrest ou t of hospital and was also noted to have ventricular tachycardia after an initial AED shock and prese nted with hypokalemia. 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 His working diagnosis is that he also has a long QT interval at the time of his arrival to the hospital post arrest and definitely has a persistent right bundle branch block. T he patient has 3 things at play that could be causing ventricular fibrillation or ventricular tachyca rdia in a patient with otherwise normal heart structure and function. 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 There is also hypokalemia of an unclear cause, which could indicate a possible channelopathy, and there was evidence of long QT on some of his EKGs. The patient does have a history of being unable to be awakened at age 12 and had a residual neurologi ulysses deficit for 4-6 weeks after that episode, so the question is whether or not this may have been an aborted sudden at that time. More data may be required to flesh out the patient's history. I n any case, because the patient is an csj-bk-ttfvlryx ventricular fibrillation survivor, he will requ noemí an AICD. We elected to use the Biotronik device because it not only is able to shock the heart, but also has an atrial electrode discriminator that allows to detect atrial activity to help decrease the risk of an inappropriate shock. PROCEDURE IN DETAIL: After informed consent was obtained, n.p.o. status was confirmed. The informed consent was obtained with the use of a video conferencing iPad. The american sign language interpreter's name was Kym and her employee badge number was [id number]. I was able to answer all the questions for the patient. I did explain that there is not an alternative therapy that is known to be superior to defibrillators in patients with out of hospital cardiac arrest. I explained the risks, benefits of the procedure. The patient is in agreement to proceed, as well as his . The region of the left subclavicular fossa was cleaned, prepped, and draped in sterile fashion. Appr oximately 25 cc of 1% lidocaine was utilized for local anesthesia. Sharp and blunt dissection were u sed to perform a pacer pocket overlying the pectoralis major fascia. An 18-gauge Cook needle was use d to gain access to the left subclavian vein with a single anterior puncture of the vessel with the p atient in a Trendelenburg position. An 8-Swedish sheath was then advanced over the wire under direct fluoroscopic guidance. The wire and dilator were removed and a ventricular lead was manipulated with care into RV apex and screwed into place. We manipulated the atrial portion of the lead such that t he electrodes would rest against the low right atrium to help with atrial rhythm discrimination. The right ventricular threshold was 0.8 at 0.4 with a pulse and the pulse amplitude was detected at 7.6; we were able to measure atrial waves at 1.8; the device was able to amplify those up to 4-fold. The lead was sutured into place with 0 Ethibond. The pocket was thoroughly flushed and checked for b leeding. Hemostasis was documented. An antibiotic soaked gauze was removed from the pocket. Device was brought to the table. The atrial lead sensing channel, ventricular lead pacing channel, and the defibrillator coil were placed in appropriate pole lead houses and the setscrews firmly applied. De vice was checked remotely via the bluetooth-enabled device and documented that the device was appropr iately sensing and pacing. The device was set in a VDD mode with a lower rate pacing of 40, upper ra te pacing of 130, with an AV delay of 300 to avoid ventricular pacing. The ventricular tachycardia detection monitoring zone was set at 167; detection zone described at 182 ; VF detection rate was 214. The VT therapies were AT burst x3, followed by 40 joules of shocks x8, and if VF is detected and relatively organized, a single attempt at ATP will be given followed by 40 joules shocks x8. FINAL IMPRESSION: Successful single-chamber automatic implantable cardioverter-defibrillator implant ation of an MRI conditional device that has atrial signal discrimination. Copy requested to: [facility] /[id number]/MODL
[2018-07-24] MEDS: ACETAMINOPHEN 325 MG TAB PO PRN ×2 (06:24→20:52)
[2018-07-24] MEDS ORDERED: POTASSIUM CL 10 MEQ TAB PO ONE (06:50)
--- NOTE | 2018-07-24 08:35 | NEUROPROG ---
Assessment: Total unit time of 15 min. The patient has recovered very well thus far from the cardiac arrest after the HACA protocol and rewarming. I do not find evidence of any neurologic deficits for now, but high-level cognitive evaluation and memory issues may take some time to fully return and require more assessment later depending on his clinical course. I will continue to check on him periodically as he becomes more alert. From a neurologic standpoint he could safely be transferred to [place] and will follow-up with them as an outpatient for these neurologic concerns which may or may not fully arise later. 07/24/18: No neuro deficits and will sign off. Subjective: The patient is now 2 days S/P rewarming and doing well with only complaint of chest wall pain. Objective: Vital Signs Temp Pulse Resp BP Pulse Ox 36.7 C 87 18 130/81 H 97 07/24/18 04:00 07/24/18 04:00 07/24/18 04:00 07/24/18 04:00 07/24/18 04:00 Microbiology 07/20/18 00:45 - Final Sputum, Induced/Suctioned Sputum Culture - Final Laboratory Results 07/23/18 05:30 07/24/18 04:10 07/23/18 07/24/18 07/25/18 05:59 05:59 05:59 Intake Total 1513 500 Output Total 2000 300 Balance -487 200 PT 13.1 SEC (12.0-15.0) 07/23/18 05:30 INR 0.97 (0.83-1.16) 07/23/18 05:30 Alert and oriented and no neuro deficits. S/P defibrillator Using CPAP Allergies/Adverse Reactions: No Known Allergies Allergy (Unverified 07/19/18 05:34)
--- NOTE | 2018-07-24 08:37 | NEUROPROG ---
Assessment: Total unit time of 15 min. The patient has recovered very well thus far from the cardiac arrest after the HACA protocol and rewarming. I do not find evidence of any neurologic deficits for now, but high-level cognitive evaluation and memory issues may take some time to fully return and require more assessment later depending on his clinical course. I will continue to check on him periodically as he becomes more alert. From a neurologic standpoint he could safely be transferred to [place] and will follow-up with them as an outpatient for these neurologic concerns which may or may not fully arise later. 07/24/18: No neuro deficits and will sign off. Total unit time of 15 minutes Objective: Vital Signs Temp Pulse Resp BP Pulse Ox 36.7 C 87 18 130/81 H 97 07/24/18 04:00 07/24/18 04:00 07/24/18 04:00 07/24/18 04:00 07/24/18 04:00 Microbiology 07/20/18 00:45 - Final Sputum, Induced/Suctioned Sputum Culture - Final Laboratory Results 07/23/18 05:30 07/24/18 04:10 07/23/18 07/24/18 07/25/18 05:59 05:59 05:59 Intake Total 1513 500 Output Total 2000 300 Balance -487 200 PT 13.1 SEC (12.0-15.0) 07/23/18 05:30 INR 0.97 (0.83-1.16) 07/23/18 05:30 Allergies/Adverse Reactions: No Known Allergies Allergy (Unverified 07/19/18 05:34)
[2018-07-24] MEDS: ENOXAPARIN 40 MG/0.4 ML SYR SC SCH (10:14)
[2018-07-24] MEDS: FAMOTIDINE 20 MG TAB PO SCH ×2 (10:14→20:52)
[2018-07-24] MEDS: AMOXICILLIN/CLAVULANATE POT 875/125 MG TAB PO SCH ×2 (10:15→20:52)
[2018-07-24] MEDS: METOPROLOL SUCCINATE XR 25 MG TAB PO SCH (10:15)
--- NOTE | 2018-07-24 11:05 | PDCARPN ---
Cardiology Progress Note Assessment/Plan: Assessment/Plan: 53-year-old male with no known past medical or cardiac history. Admitted to the ICU on 07/19 status post cardiac arrest at home. The patient's heard agonal breathing type noises and started CPR. EMS arrived quickly and he had 1 shock from the AED. He was also given amiodarone and did require 2nd shock, presumably for ventricular tachycardia or ventricular fibrillation. He had return of spontaneous respiration in circulation. In the ER he had a CT of the chest negative for pulmonary embolism. He was then taken to the construction or leak gang lab[facility] and had no significant flow-limiting coronary disease. He has completed the HACA protocol and is now rewarmed and extubated. Echocardiogram shows normalization of ejection fraction and possible RV abnormalities. 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 Status post Biotronik ICD with atrial sensing capabilities was implanted on 07/[address] Lees. He was also significantly hypokalemic with his 1st set of labs. 1. Bcs-hv-epxhsqux cardiac arrest. This is most consistent with a primary cardiac arrhythmia, although respiratory event with aspiration is also possible. SHEBA causing VT/VF is possible. I am concerned primary hypokalemia played a role; he may have a channelopathy. His initial EKG showed right bundle branch block. His EKG under the HACA protocol shows narrowing of QRS and prolongation of the QT, I do not think we can label him as having long QT in the setting of hypothermia. EKG 07/23 shows right bundle branch block. 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 His apparently has witnessed episode similar to this in past but he has always had return of consciousness. He will need outpatient EP follow-up. ICD interrogation today shows normal device function. Chest x-ray shows no pneumothorax and device in stable position. 2. Hypokalemia: He is on the replacement protocol, and has required low-dose ongoing supplementation. Unclear why he would be hypokalemic as there is no report of diuretic use or vomiting or diarrhea. Appreciate renal consult. Recommend outpatient renal follow-up for ongoing evaluation of whether he might have an RTA or periodic hypokalemic syndrome. Will need outpatient potassium supplementation. 3. Neuro status: He seems to have made full recovery. Appreciate Dr. Good' consult. May require outpatient neurological follow-up. 4. Cough with hemoptysis: He did aspirate. He continues Augmentin. Appreciate Dr. Foreman assistance. 5. Disposition: PT/OT evaluation. He is still weak. I believe he qualifies for 1 more night in the hospital given his ongoing cough and pain and then likely transfer to rehab tomorrow. 07/24/18 11:01 Subjective: Complains of cough with blood-tinged sputum. Slept poorly. Reviewed/Discussed With: family, other (Dr. Foreman) Objective: Vital Signs (8 Hrs) Temp Pulse Resp BP Pulse Ox 07/24/18 10:15 76 122/86 H 07/24/18 09:00 122/86 H 87 L 07/24/18 08:00 36.8 C 76 14 124/85 H 95 07/24/18 04:00 36.7 C 87 18 130/81 H 97 Intake/Output (24 Hrs) 07/23/18 07/24/18 07/25/18 05:59 05:59 05:59 Intake Total 1513 500 Output Total 2000 300 Balance -487 200 Intake: Oral (ml) 600 500 IV Intake (ml) 913 Output: Urine (ml) 2000 300 Catheter 400 Urinal 1600 300 Other: Number of Voids Toilet 1 Urinal 2 Number of Stools Urinal 0 Appears fatigued. Regular rate and rhythm without murmur or gallop ICD site is clean dry with intact dressing minimal tenderness. No hematoma or bleeding. Bibasilar rhonchi and rales No lower extremity edema Result Diagrams: 07/23/18 05:30 07/24/18 04:10 Telemetry: Sinus rhythm. Brief ventricular pacing during device check. ICD10 Worksheet Patient Problems: Problems Problem Status Onset Cardiac arrest Acute Hypokalemia Acute
[2018-07-24] MEDS ORDERED: BISACODYL 10 MG SUPP PR PRN (11:20)
[2018-07-24] MEDS ORDERED: MAGNESIUM HYDROXIDE 30 ML UDCUP PO PRN (11:20)
[2018-07-24] MEDS ORDERED: LACTULOSE 20 GM/30 ML UDCUP PO PRN (11:20)
[2018-07-24] MEDS ORDERED: POLYETHYLENE GLYCOL 3350 17 GM PKT PO PRN (11:20)
--- NOTE | 2018-07-24 12:02 | SOAPPROG ---
SOAP Progress Note Assessment/Plan: Assessment/plan: * Status post cardiac arrest -AICD placed * HACA protocol-resolved * Mental status-awake and alert and following commands * Acute respiratory failure secondary to above-stable off mechanical ventilation * Probable severe obstructive sleep apnea -continues to do well on CPAP -he will need an outpatient sleep study soon after being discharged from the hospital * Shock-resolved * Hypokalemia-resolved * Aspiration pneumonia-now on Augmentin. -will increase pulmonary toilet * Cardiomyopathy-improved * VTE prophylaxis * Stress ulcer prophylaxis * Nutrition-on hold * Disposition-may be discharged soon Overall markedly improved 07/24/18 12:00 Subjective: Sitting up in chair. Resting comfortably. Complains of cough is blood tinged. Denies any breathlessness. Objective: Vital Signs Temp Pulse Resp BP Pulse Ox 36.8 C 76 14 122/86 H 87 L 07/24/18 08:00 07/24/18 10:15 07/24/18 08:00 07/24/18 10:15 07/24/18 09:00 Microbiology 07/20/18 00:45 - Final Sputum, Induced/Suctioned Sputum Culture - Final Laboratory Results 07/23/18 05:30 07/24/18 04:10 07/23/18 07/24/18 07/25/18 05:59 05:59 05:59 Intake Total 1513 500 Output Total 2000 300 Balance -487 200 PT 13.1 SEC (12.0-15.0) 07/23/18 05:30 INR 0.97 (0.83-1.16) 07/23/18 05:30 - Time Spent With Patient Time Spent With Patient: 25 min of time spent with patient, over 1/2 involved with coordination of care or counseling. Case discussed with Respiratory therapy, nursing and Cardiology Physical Exam - Physical Exam General Appearance: WD/WN, alert EENT: PERRL/EOMI Neck: non-tender, full range of motion, supple, normal inspection Respiratory: rhonchi (Scattered), No respiratory distress, No wheezing Cardiac/Chest: normal peripheral pulses, regular rate, rhythm Peripheral Pulses: 2+: carotid (R), carotid (L), femoral (R), femoral (L), dorsalis-pedis (R), dorsalis-pedis (L) Abdomen: normal bowel sounds, non-tender, soft Male Genitalia: deferred Rectal: deferred Skin: normal color, warm/dry Extremities: normal range of motion, non-tender, normal inspection, normal capillary refill Neuro/Psych: alert, oriented x 3 ICD10 Worksheet Patient Problems: Problems Problem Status Onset Cardiac arrest Acute Hypokalemia Acute
[2018-07-24] MEDS: IBUPROFEN 600 MG TAB PO PRN ×2 (14:16→20:55)
--- NOTE | 2018-07-24 15:08 | ASMTCMCOM ---
CM Note CM Note Notes: Spoke with Dr Casillas who recommends SNF. She spoke with patient and family who agree that patient is not going to be safe at home until he has some PT/OT and nursing care. Our PT agreed. However, when I sent the referral to [facility], they responded that patient is too independent and does not meet criteria. I requested an MD to MD consult, and Dr Casillas will speak with [facility]. [facility] in [place] will accept patient pending [facility] auth. Case Management will follow. Date Signed: 07/24/2018 03:04 PM Electronically Signed By:Arlene Bone RN
[2018-07-24] MEDS: GUAIFENESIN/DM 10 ML UDCUP PO PRN (17:23)
[2018-07-25] MEDS: SENNOSIDES/DOCUSATE SODIUM TAB PO SCH ×2 (00:15→08:44)
[2018-07-25] MEDS ORDERED: POTASSIUM CL 10 MEQ TAB PO ONE (01:23)
[2018-07-25 07:43] VITALS: BP 133/80
[2018-07-25] MEDS: ENOXAPARIN 40 MG/0.4 ML SYR SC SCH (08:41)
[2018-07-25] MEDS: AMOXICILLIN/CLAVULANATE POT 875/125 MG TAB PO SCH (08:41)
[2018-07-25] MEDS: FAMOTIDINE 20 MG TAB PO SCH (08:42)
[2018-07-25] MEDS: METOPROLOL SUCCINATE XR 25 MG TAB PO SCH (08:43)
--- NOTE | 2018-07-25 09:54 | PDIAF ---
- Diagnosis Code Status: Full Code - Medication Management Discharge Medications: Medications to Continue on Transfer Acetaminophen [Tylenol 325mg (*)] 650 mg PO Q4HRS PRN tab 07/25/18 [Last Taken Unknown] Amoxicillin/Clavulanate Pot [Augmentin 875 MG TAB (*)] 875 mg PO BID 6 Days #12 tab 07/25/18 [Last Taken Unknown] Famotidine [Pepcid 20 MG (*)] 20 mg PO BID tab 07/25/18 [Last Taken Unknown] Ibuprofen [Motrin (*)] 600 mg PO Q6H PRN tab 07/25/18 [Last Taken Unknown] Metoprolol Succinate Xr [Toprol Xl 25 mg (*)] 25 mg PO DAILY tab 07/25/18 [ Last Taken Unknown] Potassium Chloride Po [Klor Packets 20 meq (*)] 10 meq PO DAILY pkt 07/25/18 [ Last Taken Unknown] Sennosides/Docusate Sodium [Senokot-S] 1 - 2 tab PO BID tab 07/25/18 [Last Taken Unknown] guaiFENesin/DEXTROMETHORPHAN [Robitussin Dm Oral Liquid (*)] 10 ml PO Q4HRS PRN ml 07/25/18 [Last Taken Unknown] Nursing Home Antibiotics: augmentin through 07/30/2018 [employer] Keyboard Operator Antibiotic Stop Date: 07/30/18 Discharge Medications: Refer to the Discharge Home Medication list for PRN reason. PICC Care - Routine: N/A - Orders Services needed: Physical Therapy Isolation Type: None Oxygen: 2 L/minute continously Diet Recommendation: other (see diet texture recommendations) Diet Texture: Dysphagia 3 - Advanced - Moist, Bite-Size, Thin Liquids, Meds Whole w/Liquids Weigh Patient: daily Thomas: Not applicable Wound Care Instructions: Left pectoral ICD implant. Keep dressing clean and dry. Wound check at [facility] location on 07/30/2018 at 11:30 am Activity/Weight Bearing Restrictions: post ICD implant precautions. Sling at night to left arm Additional Instructions: 1. Follow-up appointment at [facility] on July 30 at 11:30 a.m.. Please arrive at 11:15 a.m.. This is for a wound check and device check. 2. Will need to establish care in the [facility] system with Cardiology, electrophysiology, Pulmonary for sleep medicine evaluation, and Neurology for high-level cognitive evaluation. Also needs renal follow-up for hypokalemia. 3. Follow-up with primary care Dr. Dorothea Skinner in [place]. - Labs/Radiology BMP Date: 07/27/18 CMP Date: 07/27/18 Call or Fax Lab and Imaging Results to: Dr Dorothea Skinner, [facility] - Follow Up Care Current Providers and Referrals: NONE *PRIMARY CARE P,. [Primary Care Provider] - As per Instructions () José Lees MD [Medical Doctor] - (Wound check and device interrogation on July 30. Appointment is at 11:30 a.m.. Please arrive 11:15 a.m..)
--- NOTE | 2018-07-25 10:17 | ASMTLACE ---
[facility] Length of stay for Answers: 4-6 days current admission Acuity / Level of Answers: Yes Care: Did the patient have an inpatient admission? Comorbidities - select Answers: Other Notes: Cardiac arrest, possibl e all that apply Bain's palsy (resolved) # of Emergency department Answers: 1-2 visits in the last 6 months Score: 9 Date Signed: 07/25/2018 10:16 AM Electronically Signed By:Rosie Cedeno RN
--- NOTE | 2018-07-25 10:32 | ASDISCHSUM ---
Discharge Information Plan Status:SNF Medically Cleared to Leave:07/25/2018 Discharge Date:07/25/2018 CM D/C Disposition:Prison Facility ADT D/C Disposition:Other Rehab, Not [place] Projected Discharge Date:07/25/2018 11:00 AM Transportation at D/C:Wheelchair Van Discharge Delay Reason: Follow-Up Date:07/25/2018 11:00 AM Discharge Slot: Final Diagnosis:Cardiac arrest, aspiration pneumonia, hypokalemia, acute respiratory failure Placement Information Referral Type:*Fdc/SNF Referral ID:[id number] Provider Name:Vicki [place] Address 1:[address] Phone Number: Address 2: Fax Number: City:[place] Selection Factors: State:[place] Patient Contact Information Contact Name:DEAN Relationship: Address:[address] [facility] Work Phone: City:[place] Alternate Phone: [facility]/Zip Code:[place] [address] Email: Financial Information Financial Class:HMO and PPO Plans Primary Plan Desc:[facility] Primary Plan Number:[id number] Secondary Plan Desc: Secondary Plan Number: Assessment Information LACE LACE Length of stay for Answers: 4-6 days current admission Acuity / Level of Answers: Yes Care: Did the patient have an inpatient admission? Comorbidities - select Answers: Other Notes: Cardiac arrest, possibl e all that apply Bain's palsy (resolved) # of Emergency department Answers: 1-2 visits in the last 6 months Score: 9 Date Signed: 07/25/2018 10:16 AM Electronically Signed By:Rosie Cedeno RN [facility] CM Progress Note CM Note CM Note Notes: Pt arrived via EMS to the Emergency Department following apparent cardiac arrest at home. Reviewed chart. Pt does not appear to have any significant history - possible Bain's palsy as a child (resolved) and a possible fatty liver. Pt is currently intubated and under therapeutic hypothermia protocol. He is and has two small children (ages 3 and 9 months). 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 Discharge needs remain unclear; pt's prognosis is guarded at this time. CM will continue to follow. Discharge Plan: To be determined Date Signed: 07/19/2018 02:30 PM Electronically Signed By:Susanne Enriquez RN [facility] CM Progress Note CM Note CM Note Notes: Dr. Casillas states patient continues to need ICU status until his defibrillator is in. Patient is not stable for transfer to [facility] given his recent cardiac arrest and need for defibrillator. Therapies to work with patient today. Dr. Casillas is recommending outpatient renal follow up and outpatient EP follow up. D/C needs still TBD. CM will follow. Date Signed: 07/22/2018 02:37 PM Electronically Signed By:Skylar Scott LCSW [facility] CM Progress Note CM Note CM Note Notes: Spoke with Dr Casillas who recommends SNF. She spoke with patient and family who agree that patient is not going to be safe at home until he has some PT/OT and nursing care. Our PT agreed. However, when I sent the referral to [facility], they responded that patient is too independent and does not meet criteria. I requested an MD to MD consult, and Dr Casillas will speak with [facility]. [facility] in [place] will accept patient pending [facility] auth. Case Management will follow. Date Signed: 07/24/2018 03:04 PM Electronically Signed By:Arlene Bone RN Case Management Discharge Plan Note Case Management Discharge Discharge Order Complete? Answers: Yes Patient to Obtain Answers: Other Notes: [facility] Transportation Arranged Answers: Other Notes: [facility] arranged whee l chair transport with O2 Transport will Pick (Date 07/25/2018 01:00 PM & Time) Faxed Final Orders Answers: Yes Agency/Facility Transfer Answers: Yes Report Printed & Faxed to Receiving Agency Family Notified Answers: Yes Discharge Comments Notes: 07/25/2018 Case Management Note Brenda Casillas discussed case with [facility], auth approved. Confirmed with [facility]. [facility] arranged transport wheelchair with O2. RN to call report. Faxed final orders. Pt d/c to [facility]. Date Signed: 07/25/2018 10:30 AM Electronically Signed By:Rosie Cedeno RN Intervention Information
--- NOTE | 2018-07-25 11:03 | GDS ---
ADMISSION DIAGNOSES: 1. Out of hospital cardiac arrest. 2. Hypokalemia. 3. Past history of nonalcoholic fatty liver disease. DISCHARGE DIAGNOSES: 1. Out of hospital cardiac arrest, likely primary ventricular tachycardia or ventricular fibrillation, status post hypothermia after cardiac arrest protocol. 2. Status post secondary prevention Biotronik ICD implant. 3. 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 4. Hypokalemia. 5. Aspiration pneumonia. 6. Anemia. 7. Likely sleep apnea. 8. Nonalcoholic fatty liver disease. PROCEDURES: During hospital admission: 1. Coronary angiography with Dr. José Lees on 07/19/2018: Normal right dominant coronary arterial system. LV ejection fraction 35%. 2. Echocardiogram 07/19/2018: Normalization of ejection fraction at 79%. No significant valvular disease. Possible RV apical hypokinesis. 3. Chest CT 07/18/2018: No pulmonary embolism. Bilateral lower lung consolidation, right greater than left. 4. Head CT 07/19/2018: Negative for acute abnormality. 5. Serial EKGs: Sinus rhythm with right bundle branch block. EKG under the hypothermia protocol showed sinus bradycardia and prolonged QT interval. EKG after rewarming showed sinus rhythm with right bundle branch block. Borderline prolonged QT interval. 6. Serial chest x-ray show interval improvement of bibasilar abnormalities. Last 2 chest x-rays of admission show stable positioning of unipolar ICD without pneumothorax. 7. Biotronik ICD implant on 07/23/[address] Lees: Single-chamber Biotronik Intica 7 MRI conditional VR-T/DxDf-1PM, serial number #[id number]. This device has atrial discrimination capabilities. 8. Cardiac MRI 07/22/2018: Heterogeneous myocardial signal intensity within the right ventricular apex associated with decreased contractility and delayed myocardial enhancement. 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 HOSPITAL COURSE: Mr. Miller is a 53-year-old male with no previous cardiac history. He suffered a cardiac arrest in the early hours of 07/19 and was initially resuscitated with CPR by his . EMS delivered 2 shocks, presumably his rhythm was VT or VF. He had spontaneous return of circulation and was brought to [facility], where he underwent intubation, cardiac catheterization, and the hypothermia after cardiac arrest protocol for 24 hours for neuro protection. He was seen by Cardiology and Pulmonary Critical Care, as well as Nephrology. He had no further cardiac arrhythmias during his hospital stay. Nephrology was consulted for his presenting hypokalemia concerning for a trigger for his cardiac arrest. No clear etiology for this was discovered, and the patient denies use of diuretics, herbal supplements, or laxatives. His potassium did normalize, but he did require initially vigorous resuscitation and then daily supplement of 10 mEq to keep his potassium level near 4. Creatinine was normal. He was also seen by Neurology after rewarming from the hypothermia protocol. He appears to be completely neurologically intact, although advanced cognitive testing was not performed during this hospital admission. Outpatient evaluation from a neurology perspective is recommended. The patient did undergo cardiac MRI as detailed above. This is suggestive of the diagnosis of arrhythmogenic right ventricular dysplasia, which could have been the trigger for his cardiac arrest. Other possibilities include Brugada syndrome, although his EKG is not consistent with this. Primary hypokalemia related to an intrinsic renal problem or hypokalemic periodic paralysis, although clinically he has not had this problem. He underwent secondary prevention ICD implant with Dr. Lees. He was started on low-dose metoprolol. He was treated for aspiration pneumonia with Augmentin , which is still ongoing until July 30. Pulmonary also feels that he likely has sleep apnea, which could have contributed to his ventricular arrhythmias and he will need outpatient followup with this. DISCHARGE PHYSICAL EXAM: VITAL SIGNS: Blood pressure 133/80, heart rate 82, oxygen saturation is 88% to 90% on room air. Therefore, he will require supplemental oxygen 24 hours daily. Normal sinus rhythm. He is afebrile. GENERAL: Well-appearing middle-aged male in no acute distress. Regular rate and rhythm without murmur or gallop. His left pectoral ICD site is clean, dry, and intact, with minimal tenderness. No hematoma or ecchymosis. LUNGS: Bibasilar rhonchi without wheezes or rales. ABDOMEN: Soft and nontender. EXTREMITIES: No lower extremity edema. NEURO: Alert and oriented x3 without gross focal neurologic deficits. Appropriate mood and affect. DISCHARGE LABS: His CBC on 07/23 shows mild anemia with a hematocrit of 36.4, normal white count, platelets of 114, potassium the day of discharge is 4.2 with a magnesium of 2.1. Basic metabolic panel on 07/23: Sodium 139, potassium 4.3, BUN 15, creatinine 0.9, glucose 109. His hemoglobin A1c was 5.6. AST and ALT are 68 and 92, which are improved compared with admission and likely represent shock liver. SPEP was negative. TSH normal. Peak troponin 0.876. DISCHARGE MEDICATIONS: Please see med reconciliation form: 1. He will be on Augmentin b.i.d. through 07/30. 2. Toprol-XL 25 mg. 3. Potassium chloride 10 mEq daily. 4. Bowel protocol. 5. Pepcid. DISCHARGE INSTRUCTIONS: 1. He will be discharged for short-term rehab to [facility] in [place]. 2. Please follow up CBC and CMP on 07/27. 3. He has a wound check and device check at [facility] location on 07/30. He will then transition to [facility] Cardiology and Electrophysiology. 4. He will require outpatient renal followup for his history of hypokalemia. 5. He will require outpatient cardiology followup. 6. He will require outpatient neurology followup for consideration of cognitive evaluation and therapies if needed. 7. He will require sleep medicine followup for his likely sleep apnea. The patient's primary care is Dr. Dorothea Skinner in [place] with [facility]. Patient currently in stable condition. Greater than 45 minutes were spent in coordination of care for this discharge and discussion with the patient, his , Case Management, as well as physician navigator at [facility]. Copy requested to: Dr. Dorothea Skinner /[id number]/MODL MTDD
[2018-07-25] MEDS: GUAIFENESIN/DM 10 ML UDCUP PO PRN (12:06)
[2018-07-26] MEDS ORDERED: POTASSIUM CL 20 MEQ PKT PO SCH (09:00)
--- NOTE | 2018-07-29 14:25 | PQFORM ---
PHYSICIAN QUERY FORM Needs Your Response This query form is being sent to you to assure this patient record is coded properly. Please respond to the question below: BUTTON MAKER QUESTION: Dear Dr. Casillas. In his progress notes, Dr. Foreman documents that the patient had acute respiratory failure requiring intubation and mechanical ventilation. Can this diagnosis be added to the discharge summary? ____x____ yes no other Thank you for clarifying, TORREY Cm HIM Coding INSTRUCTIONS FOR RESPONSE: Answer question by clicking on the "Edit Document" button. Move cursor to area below the stars. When complete, hit "Save." Click on the "Sign" button, then click "Sign" again. Type in your PIN and hit "Enter." MTDD
== END 2018-07-25 12:58 | DRG 224 ==
LOC: F2N 07:39 → F2W 07-23 10:38
PROVIDERS: ADMIT Internal Medicine Cardiovascular Disease; ATTEND Internal Medicine Cardiovascular Disease
PROC: 4A023N7 Measurement of Cardiac Sampling and Pressure, Left Heart, Percutaneous Approach (ICD-10-PCS; 2018-07-19)
PROC: 6A4Z0ZZ Hypothermia, Single (ICD-10-PCS; 2018-07-19)
PROC: B2151ZZ Fluoroscopy of Left Heart using Low Osmolar Contrast (ICD-10-PCS; 2018-07-19)
PROC: B2111ZZ Fluoroscopy of Multiple Coronary Arteries using Low Osmolar Contrast (ICD-10-PCS; 2018-07-19)
PROC: 0BH18EZ Insertion of Endotracheal Airway into Trachea, Via Natural or Artificial Opening Endoscopic (ICD-10-PCS; 2018-07-19)
PROC: 5A1945Z Respiratory Ventilation, 24-96 Consecutive Hours (ICD-10-PCS; 2018-07-19)
PROC: 0DH67UZ Insertion of Feeding Device into Stomach, Via Natural or Artificial Opening (ICD-10-PCS; 2018-07-19)
PROC: 02HK3KZ Insertion of Defibrillator Lead into Right Ventricle, Percutaneous Approach (ICD-10-PCS; principal; 2018-07-23)
PROC: 0JH608Z Insertion of Defibrillator Generator into Chest Subcutaneous Tissue and Fascia, Open Approach (ICD-10-PCS; principal; 2018-07-23)
DX: I49.01 Ventricular fibrillation (principal); I47.2 Ventricular tachycardia; I46.2 Cardiac arrest due to underlying cardiac condition; J69.0 Pneumonitis due to inhalation of food and vomit; J96.00 Acute respiratory failure, unspecified whether with hypoxia or hypercapnia; I42.8 Other cardiomyopathies; R57.9 Shock, unspecified; E87.6 Hypokalemia; D64.9 Anemia, unspecified; G47.33 Obstructive sleep apnea (adult) (pediatric); K76.0 Fatty (change of) liver, not elsewhere classified
CPT/HCPCS: 80305; 82435-PO; 82565-PO; 82947-PO; 82947-QW; 83605-PO; 84132-PO; 84295-PO; 84484-PO; 84520-PO; 85014-PO; 92526-GN; 92610-GN; 96365; 97116-GP; 97161-GP; 97165-GO; 97530-GO; 97530-GP; A9585; C1722; C1777; G0480; J0295; J0330; J0461; J0583; J0690; J1335; J1644; J1650; J1815; J2250; J2405; J2704; J3010; J3475; J3480; P9041; Q9967